=== PATIENT | male | born 1970 | race Caucasian/White ===

== ENCOUNTER 2021-11-21 18:30 | Observation (INO) | payer OTHER, SELFPAY ==
[2021-11-21] VITALS (8 sets, daily range): BP systolic 143–162; BP diastolic 66–95; PULSE 88–104; RESP 10–20; TEMP 36.4; O2SAT 92–95
--- NOTE | ~2021-11-21 | CT_ITS ---
EXAMINATION: CT chest abdomen pelvis wo con DATE: 11/22/2021 16:03 INDICATION: Epigastric abdominal pain. Shortness of breath. Nausea and vomiting. TECHNIQUE: Computed tomography (CT) of the chest, abdomen, and pelvis was performed without intraveno us contrast. Automated exposure control and iterative reconstruction technique were employed. The dos e-length product was 1645.72 mGy-cm. COMPARISON: Chest CT 01/27/2017, CT abdomen and pelvis 04/07/2015 FINDINGS: CHEST CT: There is mild emphysema. There is mild dependent atelectasis bilaterally. There are centrilobular nod ules and groundglass opacities involving right middle lobe, right upper lobe, and right lower lobe, c onsistent with pneumonia. Calcified right lung nodules and calcified right hilar lymph nodes are cons istent with old granulomatous disease. There are trace pleural effusions. The heart size is normal. T here is a stent in left anterior descending coronary artery. No pericardial effusion. There is mild t horacic spondylosis. ABDOMEN/PELVIS CT: There is diffuse hepatic steatosis. There is liver surface nodularity, consistent with cirrhosis. Hans cifications in the spleen are consistent with old granulomatous disease. The gallbladder, pancreas, a drenal glands, are normal. There is cortical thinning of the kidneys. There is an umbilical hernia co ntaining fat. There are no dilated loops of bowel. The appendix is normal. There are no pathologicall y enlarged lymph nodes. There is no free intraperitoneal fluid. There is moderate lower lumbar spondy losis. IMPRESSION: 1. Right-sided pneumonia. 2. Cirrhosis of the liver. 3. Umbilical hernia containing fat. Reviewed, dictated and finalized at location A. DBOAT OPERATOR
--- NOTE | ~2021-11-21 | XR_ITS ---
XR chest 1V portable DATE: 11/21/2021 19:42 INDICATION: Suicide attempt TECHNIQUE: Portable upright AP chest on 11/21/2021 1938 hours COMPARISON: 09/14/2019 AP and lateral chest FINDINGS: Scattered mild infiltrates and/atelectasis in the right mid to upper lung and lower lung zo nehemiah, primarily on the right. Consider mild pneumonia, aspiration pneumonitis. Normal heart size. No pleural effusion or pulmonary vascular congestion or pneumothorax. Included skeletal structures are unremarkable. IMPRESSION: Mild patchy infiltrate or atelectasis involving primarily the right mid to upper and righ t lower lung zones. Consider pneumonia, aspiration pneumonitis Reviewed, dictated and finalized at location A. CAL TRANSCRIPTION IMPRESSION: Mild patchy infiltrate or atelectasis involving primarily the right mid to upper and right lower lung zones. Consider pneumonia, aspiration pneumo nitis
--- NOTE | 2021-11-21 18:52 | ECG_ITS ---
Measurements Intervals [place] Rate: 91 P: 19 OH: 132 QRS: -20 QRSD: 85 T: 11 QT: 355 QTc: 437 Interpretive Statements SINUS RHYTHM NONSPECIFIC T-WAVE ABNORMALITY- INFERIOR LEADS BORDERLINE ECG Electronically Signed On 11-23-2021 7:50:08 MANA[address] LEASING by To[address]ito [address] D.O.
[2021-11-21 19:12] LABS: Hematocrit 45.8 % (42.0-52.0); Hemoglobin 15.8 g/dL (14.0-18.0); Mean Corpuscular HGB Conc 34.5 g/dl (32-36); Mean Corpuscular Hemoglobin 33.6 pg (26-34); Mean Corpuscular Volume 97.4 fl (80-100); Platelet Count Result 178 k/mm3 (150-375); Red Cell Distribution Width 12.1 % (11.5-14.5); White Blood Count 22.9 K/mm3 (4.5-10.0)
[2021-11-21 19:23] LABS: Add Urine Microscopic? YES; Appearance Urine Clear (Clear); Bilirubin Urine Negative (Negative); Blood Urine Negative (Negative); Color Urine Yellow (Yellow); Glucose Urine UA Negative (Negative); Ketones Urine Negative (Negative); Leukocyte Esterase Ur Negative LEU/UL (Negative); Mucus Urine Rare /lpf; Nitrate Urine Negative (Negative); Protein Urine 1+ mg/dL (Negative); RBC Urine 0-2 /hpf (0-2); Specific Grav Ur 1.027 (1.001-1.035); Squamous Epithelial Cell Urine Rare /hpf (Few); Urobilinogen Urine Negative mg/dL (<2.0); WBC Urine 0-3 /hpf
[2021-11-21 19:27] LABS: Acetaminophen < 10 ug/mL (10-30); Ethanol < 10 mg/dL (<10); Salicylate < 1.0 mg/dL (2-20)
[2021-11-21 19:28] LABS: Alanine Aminotransferase 72 U/L (4-50); Albumin Level 4.6 g/dL (3.5-5.1); Alkaline Phosphatase 97 U/L (38-126); Anion Gap 9 mmol/L (8-16); Aspartate Amino Transferase 50 U/L (17-59); Bilirubin,Total 0.9 mg/dL (0.2-1.3); Blood Urea Nitrogen 18 mg/dL (9-20); Calcium 9.4 mg/dL (8.4-10.2); Carbon Dioxide 27 mmol/L (22-30); Chloride 104 mmol/L (98-107); Estimated CRCL calculation 79 ml/min; Estimated Glomerular Filt Rate > 60; Glucose 147 mg/dL (65-110); Potassium 4.5 mmol/L (3.4-5.0); Sodium 140 mmol/L (137-145)
--- NOTE | 2021-11-21 19:32 | ED.GENADULT ---
HPI - General Adult General Chief complaint: Overdose Stated complaint: overdose Time Seen by Provider: 11/21/21 19:05 History of Present Illness HPI narrative: Is a 51-year-old gentleman who presents the emergency department with chief complaint of overdose. Patient reports that last night he was feeling depressed and wanted to harm himself. The patient states that he took trazodone and an unknown number of other pills in an attempt to harm himself he states he took this around 6 PM yesterday he also drink alcohol with this patient states that he feels tired today patient reports he has tried to harm himself before in the past patient denies any other forms of trauma reports that he is still actively suicidal. Related Data Home Medications Medication Instructions Recorded Confirmed Ingrezza 40 mg PO DAILY 09/18/19 09/19/19 atorvastatin 40 mg PO DAILY 09/18/19 09/19/19 baclofen 10 mg PO TID PRN 09/18/19 09/19/19 fluoxetine 40 mg PO DAILY 09/18/19 09/19/19 hydrochlorothiazide 25 mg PO DAILY 09/18/19 09/19/19 hydrocodone-acetaminophen 1 tablet PO BID PRN 09/18/19 09/19/19 losartan 25 mg PO DAILY 09/18/19 09/19/19 naproxen 500 mg PO BID 09/18/19 09/19/19 omeprazole 20 mg PO BIDAC 09/18/19 09/19/19 sumatriptan succinate 100 mg PO DAILY PRN 09/18/19 09/19/19 topiramate 100 mg PO HS 09/18/19 09/19/19 trazodone 50 mg PO HS 09/18/19 09/19/19 Allergies Allergy/AdvReac Type Severity Reaction Status Date / Time Penicillins Allergy Intermediate Rash Verified 09/18/19 14:52 Sulfa (Sulfonamide Allergy Mild Rash Verified 09/18/19 14:52 Antibiotics) Review of Systems Review of Systems: A 10 system review of systems was completed on the patient and is negative except for what is stated in the HPI. Nursing and ancillary documentation was reviewed. [facility] Past Medical History Medical History Anxiety COPD (chronic obstructive pulmonary disease) Coronary artery disease Depression Extrapyramidal syndrome GERD (gastroesophageal reflux disease) Hypertension Sleep apnea Surgical History Surgical History H/O cardiac catheterization History of tonsillectomy Family History Family History Mother Family history of diabetes mellitus in first degree relative Cerebrovascular accident Father Family history of coronary artery disease Cerebrovascular accident Other Diabetes mellitus Family history of heart disease in male family member before age 55 Family history of mental disorder Hypertension Social History Social History Smoking status: Current every day smoker Second hand tobacco smoke exposure: No Alcohol intake: current Drinks per week: 1 Substance use: current Substance use type: marijuana Gender identity (if verbalized by the patient): Male Spiritual care concerns: No Agree to blood products: Yes Exam Narrative: GENERAL: Well-appearing, well-nourished, and in no acute distress. HEAD: Normocephalic, atraumatic. EYES: PERRLA and EOMI. ENT: Nares clear, no rhinorrhea or epistaxis. Mucous membranes moist. NECK: Supple. CHEST: Clear to auscultation. No respiratory distress. HEART: Regular rate and rhythm. No murmur heard. Normal peripheral pulses. ABDOMEN: Soft, nontender, nondistended, normal active bowel sounds. EXTREMITIES: Normal range of motion. No edema. SKIN: Warm, dry, no rash. NEURO: No focal deficits. Alert and oriented x3. Drowsy PSYCH: Normal mood and affect. Expresses suicidal ideation Course Course Emergency Course: Patient control was contacted and the poison control sales training representative recommended the patient be observed for 6 hours after arrival to the emergency department. Patient is a white blood cell count of 22.9. He is curre
[2021-11-21 19:35] LABS: Band Neutrophils Percent 4 % (0-6); Eosinophils Absolute Manual 0.22 K/mm3 (0.02-0.5); Eosinophils Percent Manual 1 % (0-4); Lymphocytes Absolute Manual 0.68 K/mm3 (1.1-4.5); Monocytes Absolute Manual 0.68 K/mm3 (0.1-0.90); Monocytes Percent Manual 3 % (3-9); Neutrophils Absolute Manual 21.29 K/mm3 (1.3-6.7); Neutrophils Percent Manual 89 % (46-73); Platelet Estimate Adequate (Adequate); Total Cells Counted 100
[2021-11-21 19:46] LABS: Amphetamine Screen Urine Negative (Negative); Barbiturate Screen Urine Negative (Negative); Benzodiazepines Screen Urine Positive (Negative); Cannabinoid Screen Urine Positive (Negative); Cocaine Screen Urine Negative (Negative); Methadone Screen Urine Negative (Negative); Opiate Screen Urine Positive (Negative); Phencyclidine Screen Urine Negative (Negative)
[2021-11-21 19:51] LABS: SARS-CoV-2 RNA PCR Negative
[2021-11-21] MEDS: metroNIDAZOLE 500 MG/ISO 100ML 500 MG/100 ML BAG 100 MG IVPB (22:26)
[2021-11-21] MEDS: SODIUM CHLORIDE 0.9% IV 1,000 ML 125 ML IV CONT (23:11)
[2021-11-22] VITALS (127 sets, daily range): BP systolic 135–190; BP diastolic 75–106; PULSE 83–109; RESP 11–20; O2SAT 92–98
[2021-11-22 00:24] LABS: Alanine Aminotransferase 63 U/L (4-50); Alkaline Phosphatase 87 U/L (38-126); Anion Gap 10 mmol/L (8-16); Aspartate Amino Transferase 43 U/L (17-59); Bilirubin,Total 0.6 mg/dL (0.2-1.3); Blood Urea Nitrogen 20 mg/dL (9-20); Calcium 8.9 mg/dL (8.4-10.2); Carbon Dioxide 27 mmol/L (22-30); Chloride 102 mmol/L (98-107); Creatine Kinase 230 U/L (55-170); Estimated CRCL calculation 79 ml/min; Estimated Glomerular Filt Rate > 60; Glucose 135 mg/dL (65-110); Potassium 4.3 mmol/L (3.4-5.0); Sodium 139 mmol/L (137-145)
[2021-11-22 00:25] LABS: Acetaminophen < 10 ug/mL (10-30)
--- NOTE | 2021-11-22 01:53 | PC.NURSE ---
Pt O2 sat fluctuating between 91%-93%. Pt placed on 1L NC.
[2021-11-22] MEDS: ALBUTEROL SULFATE NEB 2.5 MG/0.5 ML INH 5 MG INHALATION ×4 (03:17→20:44)
[2021-11-22] MEDS: IPRATROPIUM BR 0.02% INH SOLN 0.5 MG/2.5 ML VIAL INHALATION ×4 (03:17→20:44)
--- NOTE | 2021-11-22 04:14 | PC.NURSE ---
Mayte from poison control called for update on recent labs, vitals, and pt status. This RN gave verbal report/results information.
[2021-11-22] MEDS: metroNIDAZOLE 500 MG/ISO 100ML 500 MG/100 ML BAG 100 MG IVPB ×2 (05:31→17:44)
--- NOTE | 2021-11-22 07:24 | PC.NURSE ---
coating and embossing unit operator has order pt room tray at [id number]
[2021-11-22] MEDS: SODIUM CHLORIDE 0.9% IV 1,000 ML 125 ML IV CONT (08:29)
--- NOTE | 2021-11-22 08:30 | PC.NURSE ---
Pt awake. Assisted x1 to bedside commode. Incontinent of diarrhea in bed. Linens changed.
--- NOTE | 2021-11-22 09:00 | PC.NURSE ---
Pt asked for drink of water and drank without difficulty.
--- NOTE | 2021-11-22 10:16 | PC.NURSE ---
case # [id number] Celia Sen from poison control called - signing off on the case, states needs more medical care.
--- NOTE | 2021-11-22 10:41 | PM.IMHP ---
H&P: HPI History of Present Illness Date/Time: 11/22/21 10:41 Chief Complaint: suicidal ideation w attempt Narrative: 51 yo M w major depressive disorder, anxiety, history of tobacco use with COPD, weekend in drinking, hypertension, fatty liver, history of colectomy, history of coronary disease with stenting x2 in 2015, obesity, GERD, polysubstance abuse presents to the emergency room reporting that the previous night he had consumed baclofen, trazodone, Klonopin, and treat per just Xanax with intent to ?end it?. Upon arrival to the ER [place] poison control was notified and was observed following their guidance. Episodes of vomiting were reported in ER while pt appeared intoxicated. Patient states that he has been feeling more depressed lately. He is prescribed hydrocodone approximately 50 tablets per month for his chronic low back pain. Additionally, he consumes marijuana and Xanax purchased from the street. Patient previously under the care of psychiatrist Dr. Hitchcock however patient states this physician has moved. Previous suicide attempt in 2001 with a voluntary inpt stay at [facility] (formerly [facility]). Patient lives in [place] with his brother and his brother spouse. 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 ROS pt reporting abd pain, most significant in LLQ, history of colectomy x recurrent diverticulitis and chronic diarrhea Review of Systems Review of Systems: All systems reviewed & are unremarkable except as noted in HPI and below PMFSH Past Medical History Medical History (Updated 11/22/21 @ 16:00 by Lorena Rvai MD) Anxiety COPD (chronic obstructive pulmonary disease) Coronary artery disease Extrapyramidal syndrome GERD (gastroesophageal reflux disease) Hypertension Sleep apnea Surgical History Surgical History (Updated 11/22/21 @ 15:55 by Lorena Ravi MD) H/O adenoidectomy H/O cardiac catheterization H/O colectomy History of tonsillectomy Family History Family History Mother Family history of diabetes mellitus in first degree relative Cerebrovascular accident Father Family history of coronary artery disease Cerebrovascular accident Other Diabetes mellitus Family history of heart disease in male family member before age 55 Family history of mental disorder Hypertension Social History Social History Smoking status: Current every day smoker Second hand tobacco smoke exposure: No Alcohol intake: current Drinks per week: 1 Substance use: current Substance use type: marijuana Gender identity (if verbalized by the patient): Male Spiritual care concerns: No Agree to blood products: Yes Meds Home Medications and Allergies Home Medications Medication Instructions Recorded Confirmed Type Ingrezza 40 mg PO DAILY 09/18/19 09/19/19 History baclofen 10 mg PO TID PRN 09/18/19 09/19/19 History hydrochlorothiazide 25 mg PO DAILY 09/18/19 09/19/19 History hydrocodone-acetaminophen 1 tablet PO BID PRN 09/18/19 09/19/19 History naproxen 500 mg PO BID 09/18/19 09/19/19 History omeprazole 20 mg PO BIDAC 09/18/19 09/19/19 History topiramate 100 mg PO HS 09/18/19 09/19/19 History clonazepam 0.5 mg PO Q8H 11/22/21 11/22/21 History diclofenac sodium TOPICAL PRN 11/22/21 History dicyclomine 10 mg PO TID 11/22/21 11/22/21 History omeprazole 11/22/21 11/22/21 History Allergies Allergy/AdvReac Type Severity Reaction Status Date / Time Penicillins Allergy Intermediate Rash Verified 11/22/21 15:11 Sulfa (Sulfonamide Allergy Mild Rash Verified 11/22/21 15:11 Antibiotics) Vital Signs Vital Signs - 24 hr 11/21/21 18:41 11/21/21 18:58 11/21/21 19:00 Temperature 97.6 F Pulse Rate 94 91 104 H Respiratory Rate 12 10 L 14 Blood Pressure 162/66 H Pulse Oximetry 95 94 95 11/21/21 19:01 11/21/21 19:15 11/21/21 19:16 Temperature Pulse Rate 98 89 94 Respir
[2021-11-22] MEDS: ALBUTEROL SULFATE NEB 2.5 MG/3 ML INH 1.25 MG INHALATION (11:00)
--- NOTE | 2021-11-22 12:15 | PC.NURSE ---
Spoke with Dr Ravi - she is calling poison control to get an update from them
--- NOTE | 2021-11-22 12:47 | PC.NURSE ---
Pt states he quit smoking 3 years ago, no need for nicotine patch at this time.
--- NOTE | 2021-11-22 12:55 | PC.NURSE ---
Update to patient and daughter at bedside. Pt awake, oriented, making appropriate conversation. Daughter attempting to contact patient's pharmacy to get home list of meds. Pt denies suicidal ideation at this time.
--- NOTE | 2021-11-22 13:30 | PC.NURSE ---
Dr Ravi states pt is medically cleared and to call crisis for evaluation
--- NOTE | 2021-11-22 14:00 | PC.NURSE ---
O2 saturations appropriate on room air after returning from BR using wheelchair and ambulating independently to toilet. Taken off NC
--- NOTE | 2021-11-22 14:57 | PC.NURSE ---
Called pharmacy to reschedule timing of losartan and send dose.
--- NOTE | 2021-11-22 15:18 | PC.NURSE ---
Left message for Dr Ravi regarding patient headache.
[2021-11-22] MEDS: LOSARTAN POTASSIUM 100 MG TABLET PO (15:22)
--- NOTE | 2021-11-22 16:02 | PC.NURSE ---
Spoke with Dr Ravi. this RN to clarify home medications. MD aware of headache, is placing order for pain and hydralazine.
--- NOTE | 2021-11-22 16:03 | PC.NURSE ---
Pt returned from CT scan
[2021-11-22] MEDS: ACETAMINOPHEN 325 MG TABLET 650 MG PO (17:15)
--- NOTE | 2021-11-22 17:24 | PC.NURSE ---
Dr Ravi entered note stating pt will remain in hospital overnight. Pt is not medically cleared. Updated crisis about pt status.
--- NOTE | 2021-11-22 19:31 | PC.NURSE ---
Spoke with Sheila, patient's daughter. Daughter states family member has faxed medication list they obtained from PCP. No fax found. Family to refax or bring in list of medications.
--- NOTE | 2021-11-22 20:38 | PC.NURSE ---
Spoke with Dr Do around 2014, med list has been updated with list from Daughter who obtained med list from PCP and confirmed with patient. MD aware of BP, to placed orders for PO medications at this time and use PRN hydralazine if patient does not respond to PO medication. Decrease fluids to 75 cc per hour.
[2021-11-22] MEDS: DICYCLOMINE HCL 10 MG CAPSULE PO (21:04)
[2021-11-22] MEDS: hydroCHLOROthiazide 25 MG TABLET PO (21:04)
[2021-11-22] MEDS: NAPROXEN 500 MG TABLET PO (21:04)
[2021-11-22] MEDS: METOPROLOL TARTRATE 25 MG TABLET PO (21:05)
[2021-11-22] MEDS: SODIUM CHLORIDE 0.9% IV 1,000 ML 75 ML IV CONT (22:20)
--- NOTE | 2021-11-22 23:31 | PC.NURSE ---
gave update to daughter, Sheila.
--- NOTE | 2021-11-22 23:50 | PC.NURSE ---
Dr Do on floor, aware of elevated BP. RN to give PRN hydralazine
[2021-11-22] MEDS: hydrALAZINE HCL 20 MG/ML VIAL 10 MG IV PUSH (23:51)
[2021-11-23] VITALS (43 sets, daily range): BP systolic 161–195; BP diastolic 91–102; PULSE 78–95; RESP 12–21; TEMP 36.9; O2SAT 91–99
--- NOTE | 2021-11-23 00:25 | PC.NURSE ---
Dr. Do made aware that there was no risk indicated when this RN did CSSR. Patient verbalized, I didn't really want to harm myself. It was a stupid, drunken mistake. Dr. Do would like a sitter to stay with patient until evaluated by Crisis.
[2021-11-23] MEDS: metroNIDAZOLE 500 MG/ISO 100ML 500 MG/100 ML BAG 100 MG IVPB ×2 (03:33→11:51)
[2021-11-23] MEDS: ALBUTEROL SULFATE NEB 2.5 MG/0.5 ML INH 5 MG INHALATION ×4 (03:34→19:31)
[2021-11-23] MEDS: IPRATROPIUM BR 0.02% INH SOLN 0.5 MG/2.5 ML VIAL INHALATION ×4 (03:34→19:31)
[2021-11-23] MEDS: DICYCLOMINE HCL 10 MG CAPSULE PO ×3 (04:16→17:26)
[2021-11-23] MEDS: PANTOPRAZOLE 40 MG TABLET PO ×2 (07:53→17:26)
[2021-11-23 08:10] LABS: Basophils Absolute Auto 0.1 K/mm3 (0.0-0.1); Basophils Percent Auto 0.4 % (0.2-1.2); Eosinophils Absolute Auto 0.2 K/mm3 (0-0.3); Eosinophils Percent Auto 1.6 % (0-4.4); Hematocrit 39.6 % (42.0-52.0); Hemoglobin 13.5 g/dL (14.0-18.0); Immature Granulocyte Absolute 0.11 K/mm3 (0.00-0.031); Immature Granulocyte Percent A 0.8 % (0-0.5); Lymphocytes Absolute Auto 2.68 K/mm3 (0.9-3.2); Lymphocytes Percent Auto 20.1 % (18.3-44.2); Mean Corpuscular HGB Conc 34.1 g/dl (32-36); Mean Corpuscular Hemoglobin 33.3 pg (26-34); Mean Corpuscular Volume 97.5 fl (80-100); Mean Platelet Volume 8.7 fl (7.4-10.4); Monocytes Percent Auto 7.3 % (2.6-8.5); Neutrophils Absolute Auto 9.3 K/mm3 (1.3-6.7); Neutrophils Percent Auto 69.8 % (45.5-73.1); Platelet Count Result 132 k/mm3 (150-375); Red Blood Count 4.06 M/mm3 (4.6-6.20); Red Cell Distribution Width 12.3 % (11.5-14.5); White Blood Count 13.3 K/mm3 (4.5-10.0)
[2021-11-23 08:46] LABS: Alanine Aminotransferase 64 U/L (4-50); Albumin Level 3.7 g/dL (3.5-5.1); Alkaline Phosphatase 77 U/L (38-126); Anion Gap 3 mmol/L (8-16); Aspartate Amino Transferase 82 U/L (17-59); Bilirubin,Total 0.9 mg/dL (0.2-1.3); Blood Urea Nitrogen 14 mg/dL (9-20); CRP 3.4 mg/dL (<1.0); Calcium 8.7 mg/dL (8.4-10.2); Carbon Dioxide 30 mmol/L (22-30); Chloride 103 mmol/L (98-107); Estimated CRCL calculation 86 ml/min; Estimated Glomerular Filt Rate > 60; Glucose 102 mg/dL (65-110); Potassium 3.5 mmol/L (3.4-5.0); Sodium 136 mmol/L (137-145)
[2021-11-23] MEDS: LOSARTAN POTASSIUM 100 MG TABLET PO (08:59)
[2021-11-23] MEDS: NAPROXEN 500 MG TABLET PO ×2 (08:59→17:26)
[2021-11-23] MEDS: hydroCHLOROthiazide 25 MG TABLET PO (09:07)
--- NOTE | 2021-11-23 10:38 | PM.IMPN ---
Progress Note: A&P Assessment and Plan (1) Depression with suicidal ideation: Code(s): F32.A - Depression, unspecified; R45.851 - Suicidal ideations Status: Acute (2) Aspiration pneumonia: Qualifiers: Aspiration pneumonia type: unspecified Laterality: bilateral Lung location: unspecified part of lung Qualified Code(s): J69.0 - Pneumonitis due to inhalation of food and vomit Code(s): J69.0 - Pneumonitis due to inhalation of food and vomit Status: Acute (3) Intentional overdose: Qualifiers: Encounter type: initial encounter Qualified Code(s): T50.902A - Poisoning by unspecified drugs, medicaments and biological substances, intentional self-harm, initial encounter Code(s): T50.902A - Poisoning by unspecified drugs, medicaments and biological substances, intentional self-harm, initial encounter Status: Acute (4) Extrapyramidal syndrome: Code(s): G25.9 - Extrapyramidal and movement disorder, unspecified Status: Acute (5) Hypertension: Qualifiers: Hypertension type: unspecified Qualified Code(s): I10 - Essential (primary) hypertension Code(s): I10 - Essential (primary) hypertension Status: Acute (6) GERD (gastroesophageal reflux disease): Qualifiers: Esophagitis presence: esophagitis presence not specified Qualified Code(s): K21.9 - Gastro-esophageal reflux disease without esophagitis Code(s): K21.9 - Gastro-esophageal reflux disease without esophagitis Status: Acute (7) Major depressive disorder with current active episode: Code(s): F32.9 - Major depressive disorder, single episode, unspecified Status: Acute (8) COPD (chronic obstructive pulmonary disease): Qualifiers: COPD type: unspecified COPD Qualified Code(s): J44.9 - Chronic obstructive pulmonary disease, unspecified Code(s): J44.9 - Chronic obstructive pulmonary disease, unspecified Status: Acute (9) Obesity (BMI 35.0-39.9 without comorbidity): Code(s): E66.9 - Obesity, unspecified Status: Acute (10) Leukocytosis: Qualifiers: Leukocytosis type: unspecified Qualified Code(s): D72.829 - Elevated white blood cell count, unspecified Code(s): D72.829 - Elevated white blood cell count, unspecified Status: Acute (11) Abdominal pain: Code(s): R10.9 - Unspecified abdominal pain Status: Acute (12) Suicide attempt by drug ingestion: Code(s): T50.902A - Poisoning by unspecified drugs, medicaments and biological substances, intentional self-harm, initial encounter Status: Acute Additional Plan 51 yo M w h/o polysubstance abuse and major depression presents to [facility] after attempting to harm himself by ingesting multiple pills and drinking alcohol. Utox + for BZD, Opiates, and Marijuana (EtOH negative) admit to IMU 1:1 sitter suicide precautions Call placed to poison Control review of plan of care with them personally I have spoken with Jose Maria at [place] [facility] Control case [id number] patient has been cleared from their standpoint for his trazodone and benzodiazepine and baclofen overdose IV abx coverage for aspiration PNA covering commonly community-acquired bacteria MRSA and anaerobes, likely occurred when pt vomiting cont duonebs PRN x COPD abd pain w leukocytosis -> CT abd ordered tylenol zofran hydralazine PRN cardiac diet Patient is currently on room air but with significant leukocytosis will monitor overnight prior to discharge c/s Crisis after workup and observation period complete 11/23/21 hydralazine increased home meds pending review by RN BZD dependent this has been added back to DEC to prevent withdrawal seizure should be able to be medically cleared for dc on Levaquin when BP improved abx de-escalated nifedipine added to home BP regimen will need crisis eval prior to final disposition Subjective Date/time seen: 10/27
[2021-11-23] MEDS: clonazePAM (*CRX) 0.5 MG TABLET PO ×2 (11:52→19:13)
[2021-11-23] MEDS: ACETAMINOPHEN 325 MG TABLET 650 MG PO (12:43)
[2021-11-23] MEDS: SODIUM CHLORIDE 0.9% IV 1,000 ML 75 ML IV CONT (12:44)
[2021-11-23] MEDS: NIFEdipine 30 MG TAB.ER.24 PO (18:08)
--- NOTE | 2021-11-23 20:14 | PC.NURSE ---
Report received from CHRISTIAN Ortega. Assumed care of patient at this time.
[2021-11-23] MEDS: TAMSULOSIN HCL 0.4 MG CAPSULE PO (21:16)
[2021-11-24] VITALS (33 sets, daily range): BP systolic 129–158; BP diastolic 70–95; PULSE 79–95; RESP 12–25; TEMP 36.7; O2SAT 90–96
[2021-11-24] MEDS: ACETAMINOPHEN 325 MG TABLET 650 MG PO (01:54)
--- NOTE | 2021-11-24 01:57 | PC.NURSE ---
Patient c/o headache, requested tylenol.
[2021-11-24] MEDS: clonazePAM (*CRX) 0.5 MG TABLET PO (03:14)
[2021-11-24] MEDS: PANTOPRAZOLE 40 MG TABLET PO (06:18)
--- NOTE | 2021-11-24 08:18 | PC.NURSE ---
Hospitalist called and medically cleared patient at this time. Crisis notified of patient for evaluation
[2021-11-24] MEDS: FLUoxetine HCL 20 MG CAPSULE 40 MG PO (08:54)
[2021-11-24] MEDS: hydroCHLOROthiazide 25 MG TABLET PO (08:54)
[2021-11-24] MEDS: NAPROXEN 500 MG TABLET PO (08:54)
[2021-11-24] MEDS: DICYCLOMINE HCL 10 MG CAPSULE PO (08:54)
[2021-11-24] MEDS: NIFEdipine 30 MG TAB.ER.24 PO (12:30)
--- NOTE | 2021-11-24 13:03 | PM.DS ---
DS: Admitting Diagnosis Discharge Date 11/24/21 Admitting Diagnosis (1) Depression with suicidal ideation: Code(s): F32.A - Depression, unspecified; R45.851 - Suicidal ideations Status: Acute (2) Aspiration pneumonia: Qualifiers: Aspiration pneumonia type: unspecified Laterality: bilateral Lung location: unspecified part of lung Qualified Code(s): J69.0 - Pneumonitis due to inhalation of food and vomit Code(s): J69.0 - Pneumonitis due to inhalation of food and vomit Status: Acute (3) Intentional overdose: Qualifiers: Encounter type: initial encounter Qualified Code(s): T50.902A - Poisoning by unspecified drugs, medicaments and biological substances, intentional self-harm, initial encounter Code(s): T50.902A - Poisoning by unspecified drugs, medicaments and biological substances, intentional self-harm, initial encounter Status: Acute (4) Extrapyramidal syndrome: Code(s): G25.9 - Extrapyramidal and movement disorder, unspecified Status: Acute (5) Hypertension: Qualifiers: Hypertension type: unspecified Qualified Code(s): I10 - Essential (primary) hypertension Code(s): I10 - Essential (primary) hypertension Status: Acute (6) GERD (gastroesophageal reflux disease): Qualifiers: Esophagitis presence: esophagitis presence not specified Qualified Code(s): K21.9 - Gastro-esophageal reflux disease without esophagitis Code(s): K21.9 - Gastro-esophageal reflux disease without esophagitis Status: Acute (7) Major depressive disorder with current active episode: Code(s): F32.9 - Major depressive disorder, single episode, unspecified Status: Acute (8) COPD (chronic obstructive pulmonary disease): Qualifiers: COPD type: unspecified COPD Qualified Code(s): J44.9 - Chronic obstructive pulmonary disease, unspecified Code(s): J44.9 - Chronic obstructive pulmonary disease, unspecified Status: Acute (9) Obesity (BMI 35.0-39.9 without comorbidity): Code(s): E66.9 - Obesity, unspecified Status: Acute (10) Leukocytosis: Qualifiers: Leukocytosis type: unspecified Qualified Code(s): D72.829 - Elevated white blood cell count, unspecified Code(s): D72.829 - Elevated white blood cell count, unspecified Status: Acute (11) Abdominal pain: Code(s): R10.9 - Unspecified abdominal pain Status: Acute (12) Suicide attempt by drug ingestion: Code(s): T50.902A - Poisoning by unspecified drugs, medicaments and biological substances, intentional self-harm, initial encounter Status: Acute DS: Discharge Diagnosis Discharge Diagnosis (1) Depression with suicidal ideation: Code(s): F32.A - Depression, unspecified; R45.851 - Suicidal ideations Status: Acute (2) Aspiration pneumonia: Qualifiers: Aspiration pneumonia type: unspecified Laterality: bilateral Lung location: unspecified part of lung Qualified Code(s): J69.0 - Pneumonitis due to inhalation of food and vomit Code(s): J69.0 - Pneumonitis due to inhalation of food and vomit Status: Acute (3) Intentional overdose: Qualifiers: Encounter type: initial encounter Qualified Code(s): T50.902A - Poisoning by unspecified drugs, medicaments and biological substances, intentional self-harm, initial encounter Code(s): T50.902A - Poisoning by unspecified drugs, medicaments and biological substances, intentional self-harm, initial encounter Status: Acute (4) Extrapyramidal syndrome: Code(s): G25.9 - Extrapyramidal and movement disorder, unspecified Status: Acute (5) Hypertension: Qualifiers: Hypertension type: unspecified Qualified Code(s): I10 - Essential (primary) hypertension Code(s): I10 - Essential (primary) hypertension Status: Acute (6) GERD (gastroesophageal reflux disease): Qualif
== END 2021-11-24 13:45 | disposition home or self-care (01) ==
LOC: ANHED 21:13 → ANHICU 11-22 09:09
PROVIDERS: Admitting Provider Internal Medicine; Emergency Provider Emergency Medicine; PCP Physician Assistant; Visit Provider Hospitalist
DX: T50.902A Poisoning by unspecified drugs, medicaments and biological substances, intentional self-harm, initial encounter (principal); F32.A Depression, unspecified; J69.0 Pneumonitis due to inhalation of food and vomit; G25.9 Extrapyramidal and movement disorder, unspecified; I10 Essential (primary) hypertension; K21.9 Gastro-esophageal reflux disease without esophagitis; J44.9 Chronic obstructive pulmonary disease, unspecified; E66.9 Obesity, unspecified; Z68.36 Body mass index [BMI] 36.0-36.9, adult; D72.829 Elevated white blood cell count, unspecified; R10.9 Unspecified abdominal pain; R45.851 Suicidal ideations; I16.0 Hypertensive urgency; F32.9 Major depressive disorder, single episode, unspecified; Z20.822 Contact with and (suspected) exposure to COVID-19
CPT/HCPCS: 36415; 71045; 71250; 74176; 80053; 80202; 80307; 81001; 82550; 83735; 84443; 85025; 86140; 87040; 93005; 94640; 96361; 96365; 96366; 96367; 96375; 99285; A9270; C9803; G0378; J0360; J0696; J0743; J1956; J3370; J7030; U0003; U0005

== ENCOUNTER 2022-05-19 10:43 | Inpatient (IN) | payer OTHER, SELFPAY ==
[2022-05-19] VITALS (10 sets, daily range): BP systolic 127–176; BP diastolic 82–120; PULSE 88–128; RESP 18–24; TEMP 36.6–36.9; O2SAT 95–99
--- NOTE | ~2022-05-19 | XR_ITS ---
EXAMINATION: XR chest 1V portable INDICATION: Chest pain TECHNIQUE: Portable AP chest at 1126 hours COMPARISON: 11/21/2021 FINDINGS: The lungs are free of acute opacities. No pleural effusion or pneumothorax. The cardiomedia stinal silhouette is normal. IMPRESSION: 1. No acute cardiopulmonary abnormality. Reviewed, dictated and finalized at location B.
--- NOTE | ~2022-05-19 | US_ITS ---
EXAMINATION: US venous doppler [facility] DATE: 05/19/2022 15:28 INDICATION: Bilateral lower limb pain and swelling TECHNIQUE: Juárez scale images without and with compression and Doppler images of the bilateral lower e xtremity veins were obtained. COMPARISON: 02/04/2016 FINDINGS: The right common femoral vein, profunda femoral vein, femoral vein, popliteal vein, peroneal trunk, p osterior tibial veins, and greater saphenous vein are patent. The left common femoral vein, profunda femoral vein, femoral vein, popliteal vein, peroneal trunk, po sterior tibial veins, and greater saphenous vein are patent. IMPRESSION: 1. Patent bilateral lower extremity veins. No evidence of deep venous thrombosis. Reviewed, dictated and finalized at location B. IMPRESSION: 1. Patent bilateral lower extremity veins. No evidence of deep venous thrombosi s.
--- NOTE | ~2022-05-19 | US_ITS ---
EXAMINATION: US retroperitoneal duplex ltd DATE: 05/20/2022 09:47 CDT INDICATION: Hypertension TECHNIQUE: Multiple grayscale, color Doppler, and pulsed Doppler images of the kidneys and renal sourav malissa were obtained. COMPARISON: None. FINDINGS: The aorta peak systolic velocity is 93 cm/s. The right renal artery peak systolic velocity is 254 cm/ s in the proximal segment, 287 cm/s in the mid segment, 223 cm/s in the distal segment. The left carina l artery peak systolic velocity is 339 cm/s in the proximal segment, 341 cm/s in the mid segment, 307 cm/s in the distal segment. The renal artery/aorta systolic ratio on the right is 3.1 and on the left is 3.7. Notes: renal artery stenosis is >=180-200 cm/s or >3.5:1 ratio of renal artery velocity to aorta. Thi s correlates with >50-60% stenosis. IMPRESSION: 1. Bilateral renal artery stenosis. Reviewed, dictated and finalized at location A.
--- NOTE | ~2022-05-19 | US_ITS ---
US retroperitoneal comp 05/20/2022 09:33 Procedure: Realtime transabdominal ultrasound of the kidneys and bladder. Indication: Acute renal failure Comparison: No prior studies for comparison. Findings: Renal echotexture is normal bilaterally without hydronephrosis, contour deforming mass or r enal calculus. The right kidney measures 9.8 cm and left kidney measures 10.5 cm. Bladder within nor mal limits. Impression: 1: Unremarkable renal ultrasound. No stones, masses or hydronephrosis. Reviewed, dictated and finalized at location A. Impression: 1: Unremarkable renal ultrasound. No stones, masses or hydronephrosis.
--- NOTE | ~2022-05-19 | CT_ITS ---
EXAMINATION: CT chest abdomen pelvis wo con DATE: 05/19/2022 12:16 INDICATION: Chest heaviness and left-sided abdominal pain. Nausea and vomiting. TECHNIQUE: Computed tomography (CT) of the chest, abdomen, and pelvis was performed without intraveno us contrast. Automated exposure control and iterative reconstruction technique were employed. The dos e-length product was 1478.66 mGy-cm. COMPARISON: None FINDINGS: CHEST CT: Cluster of tiny calcified right lower lobe nodules and calcified right hilar lymph nodes consistent w ith old granulomatous disease. No pneumonia, pulmonary edema or other pulmonary infiltrates. No pleur al effusion or pneumothorax. Heart size is normal. No pericardial effusion. There are some fatty infi ltration of the wall of the ventricular septum consistent with sequela chronic infarct. Coronary sourav ry stenting along the distal right coronary. Prominent atherosclerotic calcifications versus addition al stenting at the left anterior descending coronary artery. Thoracic aorta is normal in caliber. No pathologically enlarged thoracic lymphadenopathy. Bones are unremarkable. ABDOMEN/PELVIS CT: Diffuse hepatic steatosis. Gallbladder, pancreas, bilateral adrenal glands and right kidney are teressa l. Small region of cortical atrophy at the mid left kidney. 1 mm nonobstructing stone at an upper junior e calyx of the left kidney. A few small splenic calcific lesions consistent with old granulomatous di sease. No stones at the right kidney or bilateral ureters. No hydronephrosis. Bladder is normal. Mild scattered diverticulosis with descending colon predominance. No surrounding inflammatory stranding t o suggest diverticulitis. 2 cm long thin linear metallic foreign body at the tip of the cecum. Small bowel and appendix are normal. No bowel obstruction. No free intraperitoneal gas or fluid. No patholo gically enlarged abdominal or pelvic lymphadenopathy. Small fat-containing umbilical hernia. Mild lum bar levocurvature with mild spondylosis. IMPRESSION: 1. No acute cardiopulmonary disease. 2. Indeterminate 2 cm long thin linear metallic foreign body within the cecum. Correlate for history of an ingested foreign body. 3. Mild diverticulosis. 4. Diffuse hepatic steatosis. Reviewed, dictated and finalized at location A.
--- NOTE | ~2022-05-19 | XR_ITS ---
EXAMINATION: XR chest 2V 05/21/2022 13:23 INDICATION: Orthopnea. PROCEDURE: 2 view chest COMPARISON: Comparison to multiple prior studies sequentially, with oldest reviewed study dated 04/11. FINDINGS: The lungs are clear. The cardiomediastinal silhouette is within normal limits. There are no pleural effusions. There is no pneumothorax suspected. IMPRESSION: 1: NO ACUTE CARDIOPULMONARY DISEASE. Reviewed, dictated and finalized at location A.
--- NOTE | ~2022-05-19 | CT_ITS ---
EXAMINATION: CTA abdomen DATE: 05/22/2022 08:57 INDICATION: Renal artery stenosis TECHNIQUE: Computed tomographic angiography (CTA) of the abdomen with 100 mL Omnipaque-300 intravenou s contrast. Maximum intensity projection 3D-reconstructions of the aorta and other arteries were cons tructed by the technologist on a separate workstation. The dose-length product (DLP) was 894.85 mGy-c m. Automated exposure control and iterative reconstruction technique were employed. COMPARISON: 05/19/2022 FINDINGS: There is a 2 mm nodule of the right lower lobe. The heart size is normal. Stones are presen t in the nondistended gallbladder. Punctate calcifications in an otherwise normal spleen likely repre sent healed granulomatous disease. The liver, pancreas, and adrenal glands are normal. There are area s of cortical scarring in the left kidney. The right kidney is unremarkable. No pathologically enlarg ed abdominal or pelvic lymph nodes are identified. There is no free intraperitoneal gas or evidence o f bowel obstruction. There is an umbilical hernia containing fat. The celiac axis and superior mesenteric artery are normal at their origins. Inferior mesenteric arter y is diminutive at its origin. There are single renal arteries. No renal artery stenosis is identifie d. There is no aneurysm or dissection of the abdominal aorta. Atherosclerosis is noted in the distal abdominal aorta and visualized iliac arteries. IMPRESSION: 1. No CT evidence of renal artery stenosis. Reviewed, dictated and finalized at location B.
--- NOTE | 2022-05-19 10:48 | ECG_ITS ---
Measurements Intervals [place] Rate: 134 P: 45 MI: 126 QRS: -54 QRSD: 94 T: 30 QT: 302 QTc: 452 Interpretive Statements SINUS TACHYCARDIA LEFT AXIS DEVIATION POOR R WAVE PROGRESSION, ANTERIOR LEADS BASELINE ARTIFACT- I, II, III, AVR, AVL, AVF, V1 ABNORMAL ECG Electronically Signed On 05-19-2022 12:20:[address] D.O.
[2022-05-19 11:23] LABS: Basophils Absolute Auto 0.1 K/mm3 (0.0-0.1); Basophils Percent Auto 0.3 % (0.2-1.2); Eosinophils Absolute Auto 0.2 K/mm3 (0-0.3); Eosinophils Percent Auto 1.1 % (0-4.4); Hematocrit 48.9 % (42.0-52.0); Hemoglobin 16.5 g/dL (14.0-18.0); Immature Granulocyte Absolute 0.06 K/mm3 (0.00-0.031); Immature Granulocyte Percent A 0.4 % (0-0.5); Lymphocytes Absolute Auto 3.69 K/mm3 (0.9-3.2); Lymphocytes Percent Auto 25.5 % (18.3-44.2); Mean Corpuscular HGB Conc 33.7 g/dl (32-36); Mean Corpuscular Hemoglobin 32.5 pg (26-34); Mean Corpuscular Volume 96.3 fl (80-100); Mean Platelet Volume 8.7 fl (7.4-10.4); Monocytes Percent Auto 7.1 % (2.6-8.5); Neutrophils Absolute Auto 9.5 K/mm3 (1.3-6.7); Neutrophils Percent Auto 65.6 % (45.5-73.1); Platelet Count Result 272 k/mm3 (150-375); Red Blood Count 5.08 M/mm3 (4.6-6.20); Red Cell Distribution Width 12.8 % (11.5-14.5); White Blood Count 14.5 K/mm3 (4.5-10.0)
--- NOTE | 2022-05-19 11:24 | ED.CHESTPAIN ---
HPI - Chest Pain General Chief Complaint: Chest Pain <FELICIA Casillas Last Filed: 05/19/22 20:11> Stated Complaint: shortness of breath <FELICIA Casillas Last Filed: 05/19/22 20:11> Time Seen by Provider: 05/19/22 11:05 <FELICIA Casillas Last Filed: 05/19/22 20:11> Source: patient <FELICIA Casillas Last Filed: 05/19/22 20:11> Mode of arrival: ambulatory <FELICIA Casillas Last Filed: 05/19/22 20:11> Limitations: no limitations <FELICIA Casillas Last Filed: 05/19/22 20:11> History of Present Illness HPI narrative: Patient is a 51-year-old male who presents the ED with multiple complaints. Patient reports having nausea and vomiting X 2 days, left-sided abdominal pain X 1 week. He notes history of diverticulitis and states this pain feels similar. He also reports having midsternal chest pain and heaviness, radiating through to his back. He has difficulty taking a deep breath due to the pain. Denies dyspnea at rest. He does have a history of coronary artery disease and had cardiac stents placed 2 years ago. 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 Was taken off Brilinta after 1 year. Patient states he tried to go to [place] emergency room over the weekend for these symptoms, but states he left before he was seen. He also c/o headache, muscle pain in his extremities, and tremor. Patient states he has not taken his normal home medications in the last 2 days. <FELICIA Casillas Last Filed: 05/19/22 20:11> Related Data Home Medications: Home Medications Medication Instructions Recorded Confirmed baclofen 10 mg tablet 10 mg PO TID PRN Muscle Pain 09/18/19 05/19/22 hydrocodone 7.5 mg-acetaminophen 1 tablet PO BID PRN Pain 09/18/19 05/19/22 325 mg tablet omeprazole 20 mg capsule,delayed 20 mg PO BIDAC GERD 09/18/19 05/19/22 release topiramate 25 mg tablet 125 mg PO HS PRN Pain 09/18/19 05/19/22 dicyclomine 10 mg capsule 10 mg PO TID 11/22/21 05/19/22 fluoxetine 40 mg capsule 40 mg PO DAILY 11/23/21 05/19/22 losartan 100 mg tablet 100 mg PO DAILY 11/23/21 05/19/22 naproxen 500 mg tablet,delayed 500 mg PO BID 11/23/21 05/19/22 release lamotrigine 25 mg tablet 25 mg PO DAILY 05/19/22 05/19/22 metoprolol tartrate 50 mg tablet 50 mg PO DAILY 05/19/22 05/19/22 propranolol 20 mg tablet 20 mg PO BID 05/19/22 05/19/22 <Autumn Low PA-C - Last Filed: 05/19/22 20:11> Allergies/Adverse Reactions: Allergies Allergy/AdvReac Type Severity Reaction Status Date / Time Penicillins Allergy Intermediate Rash Verified 11/22/21 15:11 Sulfa (Sulfonamide Allergy Mild Rash Verified 11/22/21 15:11 Antibiotics) <Autumn Low PA-C - Last Filed: 05/19/22 20:11> Review of Systems Review of Systems: CONSTITUTIONAL: Denies fever, chills, or sweats. CARDIOVASCULAR: See HPI RESPIRATORY: See HPI GASTROINTESTINAL: See HPI GENITOURINARY: Denies dysuria or hematuria. MUSCULOSKELETAL: See HPI NEUROLOGIC: See HPI <Autumn Low PA-C - Last Filed: 05/19/22 20:11> All systems reviewed & are unremarkable except as noted in HPI and below <Autumn Low PA-C - Last Filed: 05/19/22 20:11> [facility] Past Medical History Medical History: Medical History Anxiety COPD (chronic obstructive pulmonary disease) Coronary artery disease Extrapyramidal syndrome GERD (gastroesophageal reflux disease) Hypertension Sleep apnea <Autumn Low PA-C - Last Filed: 05/19/22 20:11> Surgical History Surgical History: Surgical History H/O adenoidectomy H/O cardiac catheterization H/O colectomy History of tonsillectomy <Autumn Low PA-C - Last Filed: 05/19/22 20:11> Family History Family History: Family History Mother Family history of diabetes mellitus in first degree relative Cerebro
[2022-05-19 11:42] LABS: Alanine Aminotransferase 80 U/L (6-50); Alkaline Phosphatase 110 U/L (38-126); Anion Gap 17 mmol/L (8-16); Aspartate Amino Transferase 62 U/L (17-59); Bilirubin,Total 1.3 mg/dL (0.2-1.3); Blood Urea Nitrogen 32 mg/dL (9-20); Calcium 9.2 mg/dL (8.4-10.2); Carbon Dioxide 22 mmol/L (22-30); Chloride 101 mmol/L (98-107); Estimated CRCL calculation 28 ml/min; Estimated Glomerular Filt Rate 18; Glucose 127 mg/dL (65-110); Lipase 65 U/L (23-300); Potassium 3.9 mmol/L (3.4-5.0); Sodium 140 mmol/L (137-145)
[2022-05-19] MEDS: ASPIRIN 81 MG CHEWABLE TABLET 324 MG PO (11:46)
--- NOTE | 2022-05-19 11:49 | PC.NURSE ---
pt states that he also has not taken his baclofen in two days. pt states that he sometimes takes three tablets at once, instead of 1 tablet TID.
[2022-05-19 11:51] LABS: Magnesium 2.1 mg/dL (1.6-2.3)
[2022-05-19 11:56] LABS: Troponin I 0.352 ng/mL (0.000-0.034)
[2022-05-19] MEDS: SODIUM CHLORIDE 0.9% IV 1,000 ML 999 ML IV CONT ×2 (12:00→14:31)
[2022-05-19] MEDS: ONDANSETRON INJ 4 MG/2 ML VIAL IV PUSH (12:00)
[2022-05-19] MEDS: MORPHINE SULFATE (*CRX) 4 MG/ML INJ IV PUSH (12:35)
[2022-05-19 12:45] LABS: Partial Thromboplastin Time 27.5 SECONDS (22.3-36.8); Prothrombin Time 13.1 Seconds (11.1-14.7)
[2022-05-19 13:24] LABS: SARS-CoV-2 RNA PCR Negative
[2022-05-19] MEDS: MORPHINE SULFATE (*CRX) 2 MG/ML INJ IV PUSH (13:44)
--- NOTE | 2022-05-19 13:54 | PM.IMHP ---
H&P: HPI History of Present Illness Date/Time: 05/19/22 13:54 Chief Complaint: chest pressure Narrative: 51M with a past medical history of myocardial infarction in 2016 s/p PCI, hypertension, hyperlipidemia, polysubstance abuse, migraine, Bipolar I, anxiety, depression, multiple suicide attempts, obstructive sleep apnea, chronic back pain, chronic muscle spasms who presents to the emergency department due to chest pressure. Patient reports chest pressure started on Thursday morning around 11am shortly [place]. Patient also reports diaphoresis and shortness of breath. He says he has had this in the past when he required cardiac cath and stenting but he thought maybe it was his anxiety so he decided not to go to the emergency department. Patient reports this morning around 0600 he woke up and checked his blood pressure as he usually does but it was much higher than usual with a systolic of 211. He says normally his blood pressure is 170s-180s systolic and that he has been to the doctor monthly for the past few months starting new medication to get his blood pressure under control. Patient initially went to [place] emergency department but left when he was told he had to wait even though he reports the waiting room being empty. Patient also reports persistent diaphoresis, chest pressure, shortness of breath with exertion, nausea and vomiting this morning, which he says he has had in the past when having issues with his heart. He also reports palpitations that wake him while sleeping but says his holter monitor was negative. He quit smoking in 2016 after 2ppd x 32 years. Patient also reports passing out on , May 15, 2022 and going to the emergency department in [place] for this. He was discharged home. Patient also report sharp pain in his right arm that started this morning. He states he has also been having difficulty urinating for the past week with hesitancy, stranguria and hematuria. He has chronic back pain with right lower extremity weakness and numbness. He denies fever, chills, cough, sore throat, abdominal pain, constipation, diarrhea, dysuria. He has chronic muscle aches for which he takes baclofen, which he reports abusing taking 3 tabs three times a day. In the emergency department, Troponin 0.352, creatinine kinase 363, Creatinine 3.50, UDS positive for opiates, benzodiazepines and cannabinoids. Patient given ASA 324 mg, Morphine, heparin ggt started and 2L NS bolus given. Review of Systems Constitutional: Constitutional: Reports body ache(s), Denies chills and Denies weakness ENT: Denies nasal congestion and Denies nasal discharge Cardiovascular: Cardiovascular: Reports chest pain, Reports diaphoresis, Denies leg edema, Reports lightheadedness and Reports palpitations Respiratory: Respiratory: Denies chest congestion, Denies cough, Reports dyspnea, Reports dyspnea on exertion and Denies wheezing Gastrointestinal: Gastrointestinal: Denies abdominal pain, Denies melena, Denies hematochezia, Denies constipation, Denies diarrhea, Reports nausea and Reports vomiting Genitourinary: Genitourinary: Reports hematuria, Denies dysuria and Reports urinary hesitancy Musculoskeletal: Musculoskeletal: Reports back pain and Reports myalgias Integumentary/Breasts: Skin/Breast: Reports erythema Neurologic: Denies headache(s) and Reports numbness Psychiatric: Psychiatric: Reports anxiety, Denies confusion and Reports depression PMFSH Past Medical History Medical History (Updated 05/19/22 @ 23:29 by Mikayla Mora MD) Anxiety COPD (chronic obstructive pulmonary disease) Coronary artery disease Extrapyramidal syndrome GERD (gastroesophageal reflux disease) Hypertension Migraine Sleep apnea Surgical History Surgical History H/O adenoidectomy H/O cardiac catheterization H/O colectomy History of tonsillectomy
[2022-05-19 14:05] LABS: Appearance Urine Slightly Cloudy (Clear); Bilirubin Urine 1+ (Negative); Blood Urine Negative (Negative); Color Urine Yellow (Yellow); Glucose Urine UA Negative (Negative); Ketones Urine Negative (Negative); Leukocyte Esterase Ur Negative LEU/UL (Negative); Nitrate Urine Negative (Negative); Protein Urine 2+ mg/dL (Negative); Specific Grav Ur >= 1.030 (1.001-1.035)
[2022-05-19 14:15] LABS: Bacteria Urine Trace /hpf; Mucus Urine Rare /lpf; Squamous Epithelial Cell Urine Few /hpf (Few); WBC Urine 0-3 /hpf
[2022-05-19 14:17] LABS: Add Urine Microscopic? YES
[2022-05-19] MEDS: hydrALAZINE HCL 20 MG/ML VIAL 10 MG IV PUSH (14:31)
--- NOTE | 2022-05-19 14:54 | ECG_ITS ---
Measurements Intervals [place] Rate: 109 P: 62 OK: 150 QRS: -32 QRSD: 93 T: 46 QT: 329 QTc: 444 Interpretive Statements SINUS TACHYCARDIA LEFT AXIS DEVIATION BORDERLINE R WAVE PROGRESSION, ANTERIOR LEADS BASELINE ARTIFACT- I, II, AVR, AVF ABNORMAL ECG Electronically Signed On 05-21-2022 15:13:[address] D.O.
[2022-05-19] MEDS: HEPARIN SODIUM 5,000 UNITS/ML VIAL 4000 UNITS IV PUSH ×2 (15:39→23:17)
[2022-05-19] MEDS: HEPARIN SOD/D5W 100 UNITS/ML 25,000 UNITS/250 ML BAG 10 UNITS IV CONT (15:39)
[2022-05-19 15:58] LABS: Creatine Kinase 363 U/L (55-170)
[2022-05-19 16:28] LABS: Amphetamine Screen Urine Negative (Negative); Barbiturate Screen Urine Negative (Negative); Benzodiazepines Screen Urine Positive (Negative); Cannabinoid Screen Urine Positive (Negative); Cocaine Screen Urine Negative (Negative); Methadone Screen Urine Negative (Negative); Opiate Screen Urine Positive (Negative); Phencyclidine Screen Urine Negative (Negative)
--- NOTE | 2022-05-19 17:17 | ADMGEN ---
This patient, Hung Jung Sr., was admitted to IMU Room 214-01 at 1715 on 05/19/2022. Report received from Priyanka GONZALES. Patient/family oriented to hospital policies and general routines including ID bracelet, bed and alarms, visiting hours, pain management, procedures, bathroom and other care routines, personal items, smoking policy, room service/diet, and visiting hours. Information on how to activate the Rapid Response Team has been discussed. Patient/Family are encouraged to report perceived risks to care and to ask questions if they do not understand what they are told or what they should do.
[2022-05-19] MEDS: FLUoxetine HCL 20 MG CAPSULE 40 MG PO (20:38)
[2022-05-19] MEDS: lamoTRIgine 25 MG TABLET PO (20:40)
[2022-05-19] MEDS: NIFEdipine 30 MG TAB.ER.24 PO (20:40)
[2022-05-19] MEDS: METOPROLOL TARTRATE 50 MG TAB PO (20:40)
[2022-05-19] MEDS: SODIUM CHLORIDE 0.9% IV 1,000 ML 125 ML IV CONT (20:42)
[2022-05-19] MEDS: HYDROcodone/acetaminophen (*CRX) 7.5-325 MG TABLET 1 TAB PO (20:49)
[2022-05-19 21:58] LABS: Anion Gap 11 mmol/L (8-16); Blood Urea Nitrogen 33 mg/dL (9-20); Calcium 9.1 mg/dL (8.4-10.2); Carbon Dioxide 27 mmol/L (22-30); Chloride 101 mmol/L (98-107); Creatine Kinase 868 U/L (55-170); Estimated CRCL calculation 40 ml/min; Estimated Glomerular Filt Rate 29; Glucose 116 mg/dL (65-110); Potassium 4.1 mmol/L (3.4-5.0); Sodium 139 mmol/L (137-145)
[2022-05-20] VITALS (11 sets, daily range): BP systolic 125–163; BP diastolic 68–99; PULSE 61–86; RESP 16–20; TEMP 36.3–36.7; O2SAT 95–100; BMI 37.3
--- NOTE | 2022-05-20 | ECHO_ITS ---
Patient Info Name: Hung Jung Age: 51 years : 1970 Gender: Male Ht: 69 in Wt: 240 lbs BSA: 2.34 m2 HR: 80 bpm BP: 148 / 89 mmHg Heart Rhythm: Sinus Rhythm Technical Quality: Fair Exam Date: 05/20/2022 9:39 AM Exam Location: [facility] Patient Status: Inpatient Admit Date: 05/19/2022 Staff Ordering Physician: Mikayla Mora MD Health Care Marketing Specialist: Shraddha Askew RDCS Attending Provider: Iban Vail MD Referring Physician: Abby SHERMAN; Exam Type: CA echo doppler color flow Study Info Indications - chest pressure Complete two-dimensional, color flow and Doppler transthoracic echocardiogram is performed. Summary 1. Complete two-dimensional, color flow and Doppler transthoracic echocardiogram is performed. 2. Normal LV size, moderate LVH, normal LV systolic and diastolic function, ejection fraction 65-70%. Mild mitral annular calcification, no significant MR. Mild aortic valve sclerosis, no hemodynamically significant stenosis. Trace TR, RVSP 40 mmHg. Sinus rhythm. Left Ventricle Left ventricular chamber dimension is normal. Left ventricular systolic function is normal, estimated at 65-70%. There is moderately increased left ventricular wall thickness. The left ventricular diastolic function is normal. Right Ventricle Right ventricular chamber dimension is normal. Right ventricular systolic function is normal. Left Atria Left atrial chamber dimension is normal. Aortic Valve There is mild aortic valve sclerosis. There is no aortic valve stenosis. Pulmonic Valve The pulmonic valve is not well visualized. Mitral Valve There is no mitral valve regurgitation. The mitral valve annulus is mildly calcified. Tricuspid Valve The tricuspid valve leaflets are normal. There is trace tricuspid valve regurgitation. Mild pulmonary hypertension, estimated pulmonary arterial systolic pressure is 40 mmHg. Pericardium/Pleural The pericardium appears epicardial fat pad. Aorta The aortic root size at the sinus of Valsalva is normal. Left Ventricular Outflow Tract Name Value Normal LVOT 2D LVOT Diameter 2.0 cm LVOT Doppler LVOT Peak Gradient 2 mmHg LVOT Mean Gradient 1 mmHg LVOT VTI 16 cm LVOT VTI/AV VTI Ratio 0.7 LVOT Stroke Volume 51 ml LVOT CO 3.5 l/min LVOT CI 1.5 l/min/m2 Pulmonic Valve Name Value Normal RVOT Doppler RVOT Peak Gradient 3 mmHg PV Doppler PV Peak Gradient 4 mmHg Mitral Valve Name
[2022-05-20] MEDS: SODIUM CHLORIDE 0.9% IV 1,000 ML 150 ML IV CONT ×3 (03:50→17:16)
[2022-05-20 04:41] LABS: Basophils Absolute Auto 0.1 K/mm3 (0.0-0.1); Basophils Percent Auto 0.6 % (0.2-1.2); Eosinophils Absolute Auto 0.2 K/mm3 (0-0.3); Eosinophils Percent Auto 1.8 % (0-4.4); Hemoglobin 14.9 g/dL (14.0-18.0); Immature Granulocyte Absolute 0.05 K/mm3 (0.00-0.031); Immature Granulocyte Percent A 0.5 % (0-0.5); Lymphocytes Absolute Auto 4.32 K/mm3 (0.9-3.2); Lymphocytes Percent Auto 41.9 % (18.3-44.2); Mean Corpuscular HGB Conc 32.4 g/dl (32-36); Mean Corpuscular Hemoglobin 32.4 pg (26-34); Mean Platelet Volume 8.7 fl (7.4-10.4); Monocytes Absolute Auto 0.8 K/mm3 (0.1-0.6); Monocytes Percent Auto 7.7 % (2.6-8.5); Neutrophils Absolute Auto 4.9 K/mm3 (1.3-6.7); Neutrophils Percent Auto 47.5 % (45.5-73.1); Platelet Count Result 190 k/mm3 (150-375); Red Cell Distribution Width 12.9 % (11.5-14.5); White Blood Count 10.3 K/mm3 (4.5-10.0)
[2022-05-20 04:50] LABS: Creatine Kinase 1469 U/L (55-170)
[2022-05-20 04:56] LABS: Partial Thromboplastin Time 60.1 SECONDS (22.3-36.8)
[2022-05-20 05:16] LABS: Creatinine Urine 331.6 mg/dL; Urea Random Urine 1054 MG/DL
[2022-05-20 05:17] LABS: Sodium Urine Random 94 meq/L
[2022-05-20 05:32] LABS: Procalcitonin 0.2 ng/mL
[2022-05-20 05:33] LABS: HIV 1/2 Ab P24 Ag Result Negative (Negative)
[2022-05-20] MEDS: HEPARIN SODIUM 5,000 UNITS/ML VIAL 3500 UNITS IV PUSH (05:35)
[2022-05-20 05:44] LABS: Hepatitis B Surface Antigen Negative (Negative)
[2022-05-20 05:50] LABS: HAV RESULT Negative (Negative); Hepatitis B Core IgM Result Negative (Negative)
[2022-05-20 06:01] LABS: Hepatitis C Virus Antibody Negative (Negative)
--- NOTE | 2022-05-20 08:52 | PM.CNCAR ---
Assessment and Plan Assessment and plan (1) Rhabdomyolysis: Code(s): M62.82 - Rhabdomyolysis Status: Acute Assessment and Plan: 51-year-old male with multiple medical problems including history of CAD, status post PCI/stenting of mid LAD and RPDA on 12/04/2016 and 12/18/2016 respectively in the setting of non ST elevation MT; hypertension, obesity, history of tobacco abuse, marijuana abuse,? Psychiatric disorder, noncompliance. Patient admitted to the hospital with multiple complaints including abdominal pain, nausea, vomiting, muscle cramps, chest pressure. He recently had heat exposure. He was found to have rhabdomyolysis, acute kidney injury. He also has mild troponin elevation in the setting of rhabdomyolysis, KAITY. Troponin elevation likely type 2 MT. He currently does not have any active cardiac ischemic symptoms. Bedside echocardiogram on my personal evaluation showed LVH, preserved LV systolic function. Continue IV hydration. Monitor for improvement in renal function. Resume aspirin, continue metoprolol. Patient's home medications show both metoprolol and propranolol. Would discontinue propranolol and continue metoprolol. May resume statin when rhabdomyolysis completely resolves. Continue to monitor on telemetry for now. (2) Acute kidney injury: Code(s): N17.9 - Acute kidney failure, unspecified Status: Acute Assessment and Plan: IV hydration (3) Elevated troponin: Code(s): R77.8 - Other specified abnormalities of plasma proteins Status: Acute Assessment and Plan: Likely type 2 MT in the setting of rhabdomyolysis, acute kidney injury. (4) Coronary artery disease: Code(s): I25.10 - Atherosclerotic heart disease of [place] coronary artery without angina pectoris Status: Acute Assessment and Plan: Patient has known CAD, history of PCI/stenting. Medical treatment with antiplatelet therapy, beta-fred. Statin when rhabdomyolysis resolves. Patient has not been compliant with medical regimen and outpatient follow-up. He was strongly advised to be compliant with medications and follow-up with Cardiology. He verbalized understanding. (5) Noncompliance: Code(s): Z91.19 - Patient's noncompliance with other medical treatment and regimen Status: Acute Assessment and Plan: Counseling was done regarding compliance. Additional Plan Patient was advised to follow up with Cardiology after hospital discharge. We will follow the patient on p.r.n. basis during hospitalization. History of Present Illness History of Present Illness Consult date/time: 05/20/22 08:52 Requesting physician: Autumn Low PA-C Reason For Visit: Elevated Troponin/CP/leukocytosis/KAITY Narrative: DATE OF CONSULT: 05/20/2022 REASON FOR CONSULT: Elevated troponin, chest pain, leukocytosis, KAITY REQUESTING PHYSICIAN:Autumn Low PA-C CHIEF COMPLAINT: Nausea, vomiting, abdominal pain, chest pressure HPI: 51-year-old male with history of CAD, status post PCI/stenting of mid LAD and RPDA on 12/04/2016 and 12/18/2016 respectively in the setting of non ST elevation MT; hypertension, obesity, history of tobacco abuse, marijuana abuse,? Psychiatric disorder, noncompliance. Patient presented to [facility] Emergency Room on 05/19/2022 with complaints of left-sided abdominal pain, nausea and vomiting. Patient states that he was exposed to extreme heat on the weekend on a river float, and next morning, experience nausea vomiting abdominal pain and muscle cramps. His symptoms are associated with chest pressure. He denied dizziness or syncope. Patient has known CAD and had PCI/stenting of mid LAD and RPDA on 12/04/2016 and 12/18/2016 respectively in the setting of non ST elevation MT, performed by Dr. Sumner. He has not had regular cardiology follow-up over the years. He states that he has to see a weight inspector at [facility], however has not had regular follow-up. Marya
[2022-05-20 09:48] LABS: Anion Gap 9 mmol/L (8-16); Blood Urea Nitrogen 32 mg/dL (9-20); Calcium 8.7 mg/dL (8.4-10.2); Carbon Dioxide 26 mmol/L (22-30); Chloride 104 mmol/L (98-107); Estimated CRCL calculation 46 ml/min; Estimated Glomerular Filt Rate 33; Glucose 100 mg/dL (65-110); Potassium 4.4 mmol/L (3.4-5.0); Sodium 139 mmol/L (137-145)
[2022-05-20] MEDS: HYDROcodone/acetaminophen (*CRX) 7.5-325 MG TABLET 1 TAB PO ×3 (10:11→20:44)
[2022-05-20] MEDS: PANTOPRAZOLE 40 MG TABLET PO ×2 (10:12→20:44)
[2022-05-20] MEDS: DICYCLOMINE HCL 10 MG CAPSULE PO ×3 (10:12→17:16)
[2022-05-20] MEDS: FLUoxetine HCL 20 MG CAPSULE 40 MG PO (10:12)
[2022-05-20] MEDS: METOPROLOL TARTRATE 50 MG TAB PO (10:12)
[2022-05-20] MEDS: ASPIRIN 81 MG ENTERIC TABLET PO (10:13)
[2022-05-20] MEDS: lamoTRIgine 25 MG TABLET PO (10:13)
[2022-05-20] MEDS: NIFEdipine 30 MG TAB.ER.24 PO (10:27)
[2022-05-20 12:18] LABS: Partial Thromboplastin Time 83.4 SECONDS (22.3-36.8)
[2022-05-20] MEDS: HEPARIN SOD/D5W 100 UNITS/ML 25,000 UNITS/250 ML BAG 15 UNITS IV CONT (13:12)
[2022-05-20] MEDS: hydrOXYzine HCL 25 MG TABLET PO ×2 (13:15→20:43)
[2022-05-20] MEDS: BACLOFEN 10 MG TABLET PO ×2 (14:41→20:43)
--- NOTE | 2022-05-20 15:25 | PM.CNNEP ---
Assessment and Plan Additional Plan 1. Hung has acute kidney injury. He typically has a creatinine between 1.1 and 1.2 as demonstrated by labs back in October. He has urine electrolytes which showed a fractional excretion of urea of only 21%, consistent with dehydration. renal ultrasound is unremarkable CPK mildly elevated but on the rise The patient does have an elevated CK but not high enough to cause kidney disease. Will check another 1 the because it is trending upwards. He looks like he is probably dehydrated. He has had nausea and vomiting And has not been taking much in. He has been taking naproxen at home which of course can add to any renal dysfunction. He is on losartan as well which can exaggerate the response of creatinine to dehydration. Allergic interstitial nephritis and glomerulonephritis are unlikely in this clinical scenario. at this point he is getting IV fluids. I agree with continuing these. His losartan and Naprosyn are on hold. Will check a renal panel in the morning. 2. The patient has hypertension. This is very high. He is on nifedipine and losartan as well as propranolol for this. His blood pressure was still high he had a renal arterial Doppler which showed renal artery stenosis. he will need a CT angio to verify this. Will wait until his renal function returns to normal before we do this. In the meantime his blood pressure is better. The last 1 was 147. He is on metoprolol and nifedipine. We will continue to hold the losartan for now. Since his blood pressure is trending down words I will not add anything new to his regimen. 3. The patient has positive troponins. Cardiology is seeing the patient. 4. Has a history of polysubstance abuse. Cocaine was negative but marijuana, benzodiazepines, and opiates showed up. 5. YESENIA pt doesn't use the cpap maching History of Present Illness Reason for Consult Consult date: 05/20/22 Chief Complaint Chief complaint: Elevated Troponin/CP/leukocytosis/KAITY History of Present Illness Narrative: Hung is a very pleasant 51-year-old gentleman who has multiple medical problems including hypertension, hyperlipidemia, coronary disease status post PCI, obstructive sleep apnea, chronic back pain, bipolar depression, anxiety, multiple suicide attempts, polysubstance abuse, migraines. The patient was well in till Thursday. He went on a float trip on Thursday [place] the [place] but then Thursday morning woke up feeling poorly. He has shortness of breath, lightheadedness, sweating, chest pressure, nausea and vomiting so he was taken home Thursday morning. He thought he would get better and so did not go to the ER Thursday or Thursday but then on he woke up and still felt bad so came to the ER. He was evaluated in the ER. His blood pressure was very high, his creatinine was high, he looked Dehydrated. His troponins were elevated, and his CPK was elevated. he was admitted to the floor and given IV fluids. His creatinine came down a little bit. Renal consultation was requested for the high creatinine. The patient has not had any kidney problems in the past. He has not had any bloody urine foamy urine kidney stones or bladder infections by report. he did not have any black or bloody stools. He says that at times his vomitus was black but never bloody. He has had hypertension for many years. Blood pressure generally runs in the 160s and 170s. He has sleep apnea for many years as well. About a year ago his CPAP machine broke and he never got a new on because he could not afford it. Review of Systems Constitutional: Constitutional: Reports no additional constitutional complaints Eyes: Eyes: Reports no additional eye complaints ENT: Reports system reviewed and no additional complaints, except as documented Cardiovascular: Cardiovascular: Reports no additional cardiovascular compla
--- NOTE | 2022-05-20 18:46 | PC.NURSE ---
This patient, Hung Jung Sr., was transferred to [facility] on 05/20/22 at 1844. Personal belongings sent with patient. Report given to Anya GONZALES. Appropriate documentation sent with patient.
[2022-05-20 18:47] LABS: Creatine Kinase 819 U/L (55-170)
[2022-05-20 19:28] LABS: Partial Thromboplastin Time 80.3 SECONDS (22.3-36.8)
[2022-05-20] MEDS: TOPIRAMATE 25 MG TABLET 125 MG PO (20:43)
--- NOTE | 2022-05-20 22:50 | PM.IMPN ---
Progress Note: A&P Assessment and Plan (1) Chest pain: Qualifiers: Chest pain type: unspecified Qualified Code(s): R07.9 - Chest pain, unspecified Code(s): R07.9 - Chest pain, unspecified Status: Acute Assessment and Plan: Patient significantly improved after hydration and no longer has chest pain. -Continue ASA and metoprolol -Appreciate Cardiology recommendations (2) Elevated troponin: Code(s): R77.8 - Other specified abnormalities of plasma proteins Status: Acute Assessment and Plan: This appears to have resolved. Was likely due to heat. (3) Acute kidney injury: Code(s): N17.9 - Acute kidney failure, unspecified Status: Acute Assessment and Plan: Improved this morning. Renal ultrasound unremarkable. Renal artery duplex shows bilateral renal artery stenosis, which may explain why his blood pressure has been so difficult to control. -Appreciate recommendations from Nephrology -Avoid nephrotoxic agents -Renally dose medications -Will continue IVF due to rising CK (4) Rhabdomyolysis: Code(s): M62.82 - Rhabdomyolysis Status: Acute Assessment and Plan: CK increasing. May be related to heat exposure over the weekend after excessive sun exposure on Thursday. Unclear etiology. S/p 2L NS in ED on arrival. -NS at 150 cc/hr (5) Hypertensive urgency: Code(s): I16.0 - Hypertensive urgency Status: Acute Assessment and Plan: SBP 160s-170s uncontrolled on 4 agents - propanolol 20 mg BID, metoprolol 50 mg daily, losartan 100 mg, nifedipine 30 mg qam. -Continue metoprolol -Holding losartan due to Acute Renal Failure -Continue nifedipine -Avoid hydralazine due to HR (6) Polysubstance abuse: Code(s): F19.10 - Other psychoactive substance abuse, uncomplicated Status: Acute Assessment and Plan: Currently denies hx of IVDA or anything other than marijuana but does report abusing his bacolofen. UDS as noted above. Will monitor. (7) Leukocytosis: Qualifiers: Leukocytosis type: unspecified Qualified Code(s): D72.829 - Elevated white blood cell count, unspecified Code(s): D72.829 - Elevated white blood cell count, unspecified Status: Acute Assessment and Plan: Afebrile. Procalcitonin low. Resolving without intervention. -Monitor fever curve for now (8) Coronary artery disease: Code(s): I25.10 - Atherosclerotic heart disease of [place] coronary artery without angina pectoris Status: Acute Assessment and Plan: On BB at home. Continue aspirin. Holding statin due to LFTs. Holding statin. (9) Sleep apnea: Code(s): G47.30 - Sleep apnea, unspecified Status: Acute Assessment and Plan: Broke CPAP machine over a year ago and never replaced due to financial difficulty. (10) Lumbar back pain with radiculopathy affecting right lower extremity: Code(s): M54.16 - Radiculopathy, lumbar region Status: Acute Assessment and Plan: Has chronic RLE numbness and weakness. (11) Stranguria: Code(s): R30.0 - Dysuria Status: Acute Assessment and Plan: Unclear what this is. renal ultrasound shows no hydronephrosis or obstruction. (12) GERD (gastroesophageal reflux disease): Qualifiers: Esophagitis presence: esophagitis presence not specified Qualified Code(s): K21.9 - Gastro-esophageal reflux disease without esophagitis Code(s): K21.9 - Gastro-esophageal reflux disease without esophagitis Status: Acute Assessment and Plan: On omeprazole at home. Continue PPI. (13) Major depressive disorder with current active episode: Code(s): F32.9 - Major depressive disorder, single episode, unspecified Status: Acute Assessment and Plan: Continue fluoxetine. (14) Transamini
[2022-05-21] MEDS: SODIUM CHLORIDE 0.9% IV 1,000 ML 150 ML IV CONT (00:11)
[2022-05-21 00:47] LABS: Creatinine Urine 91.4 mg/dL
[2022-05-21 00:58] LABS: Total Protein Urine Random < 5 mg/dL; Ur Ttl Prot Creatinine Ratio < 0.05 mg/mg (0-0.20)
[2022-05-21 05:57] LABS: Basophils Absolute Auto 0.1 K/mm3 (0.0-0.1); Basophils Percent Auto 0.8 % (0.2-1.2); Eosinophils Absolute Auto 0.2 K/mm3 (0-0.3); Eosinophils Percent Auto 2.8 % (0-4.4); Hematocrit 39.8 % (42.0-52.0); Hemoglobin 12.9 g/dL (14.0-18.0); Immature Granulocyte Absolute 0.02 K/mm3 (0.00-0.031); Immature Granulocyte Percent A 0.3 % (0-0.5); Lymphocytes Absolute Auto 2.61 K/mm3 (0.9-3.2); Lymphocytes Percent Auto 43.1 % (18.3-44.2); Mean Corpuscular HGB Conc 32.4 g/dl (32-36); Mean Corpuscular Hemoglobin 32.4 pg (26-34); Mean Platelet Volume 9.1 fl (7.4-10.4); Monocytes Absolute Auto 0.5 K/mm3 (0.1-0.6); Monocytes Percent Auto 8.7 % (2.6-8.5); Neutrophils Absolute Auto 2.7 K/mm3 (1.3-6.7); Neutrophils Percent Auto 44.3 % (45.5-73.1); Platelet Count Result 147 k/mm3 (150-375); Red Blood Count 3.98 M/mm3 (4.6-6.20); Red Cell Distribution Width 12.6 % (11.5-14.5); White Blood Count 6.1 K/mm3 (4.5-10.0)
[2022-05-21] MEDS: HEPARIN SOD/D5W 100 UNITS/ML 25,000 UNITS/250 ML BAG 15 UNITS IV CONT (06:13)
[2022-05-21 06:24] LABS: Alanine Aminotransferase 70 U/L (6-50); Albumin Level 3.3 g/dL (3.5-5.1); Alkaline Phosphatase 79 U/L (38-126); Anion Gap 7 mmol/L (8-16); Aspartate Amino Transferase 58 U/L (17-59); Bilirubin,Total 0.8 mg/dL (0.2-1.3); Blood Urea Nitrogen 22 mg/dL (9-20); Calcium 8.4 mg/dL (8.4-10.2); Carbon Dioxide 24 mmol/L (22-30); Chloride 105 mmol/L (98-107); Creatine Kinase 641 U/L (55-170); Estimated CRCL calculation 74 ml/min; Estimated Glomerular Filt Rate 58; Glucose 93 mg/dL (65-110); Phosphorus 2.6 mg/dL (2.5-4.5); Sodium 136 mmol/L (137-145)
--- NOTE | 2022-05-21 07:35 | PM.IMPN ---
Progress Note: A&P Assessment and Plan (1) Chest pain: Qualifiers: Chest pain type: unspecified Qualified Code(s): R07.9 - Chest pain, unspecified Code(s): R07.9 - Chest pain, unspecified Status: Acute Assessment and Plan: Patient significantly improved after hydration and no longer has chest pain. Resolved. -Continue ASA and metoprolol -Appreciate Cardiology recommendations (2) Elevated troponin: Code(s): R77.8 - Other specified abnormalities of plasma proteins Status: Acute Assessment and Plan: This appears to have resolved. Was likely due to heat. (3) Acute kidney injury: Code(s): N17.9 - Acute kidney failure, unspecified Status: Acute Assessment and Plan: Renal ultrasound unremarkable. Renal artery duplex shows bilateral renal artery stenosis, which may explain why his blood pressure has been so difficult to control. Creatinine now at baseline. -Appreciate recommendations from Nephrology -Avoid nephrotoxic agents -Renally dose medications -Decreased IVF to 125 cc/hr this morning (4) Rhabdomyolysis: Code(s): M62.82 - Rhabdomyolysis Status: Acute Assessment and Plan: May be related to heat exposure over the weekend after excessive sun exposure on Thursday. Unclear etiology. S/p 2L NS in ED on arrival. CK downtrending. -NS at 125 cc/hr (5) Hypertensive urgency: Code(s): I16.0 - Hypertensive urgency Status: Acute Assessment and Plan: Noted on initial presentation. SBP 160s-170s uncontrolled on 4 agents - propranolol 20 mg BID, metoprolol 50 mg daily, losartan 100 mg, nifedipine 30 mg qam. Renal artery stenosis found on renal duplex. Patient is now normotensive. -Continue metoprolol -Holding losartan -Continue nifedipine -Avoid hydralazine due to HR (6) Polysubstance abuse: Code(s): F19.10 - Other psychoactive substance abuse, uncomplicated Status: Acute Assessment and Plan: Currently denies hx of IVDA or anything other than marijuana but does report abusing his bacolofen. UDS as noted above. Will monitor. (7) Leukocytosis: Qualifiers: Leukocytosis type: unspecified Qualified Code(s): D72.829 - Elevated white blood cell count, unspecified Code(s): D72.829 - Elevated white blood cell count, unspecified Status: Acute Assessment and Plan: Afebrile. Leukocytosis resolved. (8) Coronary artery disease: Code(s): I25.10 - Atherosclerotic heart disease of [place] coronary artery without angina pectoris Status: Acute Assessment and Plan: On BB at home. Continue aspirin. Holding statin due to LFTs. Holding statin. (9) Sleep apnea: Code(s): G47.30 - Sleep apnea, unspecified Status: Acute Assessment and Plan: Broke CPAP machine over a year ago and never replaced due to financial difficulty. (10) Lumbar back pain with radiculopathy affecting right lower extremity: Code(s): M54.16 - Radiculopathy, lumbar region Status: Acute Assessment and Plan: Has chronic RLE numbness and weakness. (11) Stranguria: Code(s): R30.0 - Dysuria Status: Acute Assessment and Plan: May have had severe dehydration? (12) GERD (gastroesophageal reflux disease): Qualifiers: Esophagitis presence: esophagitis presence not specified Qualified Code(s): K21.9 - Gastro-esophageal reflux disease without esophagitis Code(s): K21.9 - Gastro-esophageal reflux disease without esophagitis Status: Acute Assessment and Plan: On omeprazole at home. Continue PPI. (13) Major depressive disorder with current active episode: Code(s): F32.9 - Major depressive disorder, single episode, unspecified Status: Acute Assessment and Plan: Continue fluoxetine. (14) Transaminitis
[2022-05-21 09:02] VITALS: PULSE 72
[2022-05-21] MEDS: METOPROLOL TARTRATE 50 MG TAB PO (09:02)
[2022-05-21] MEDS: PANTOPRAZOLE 40 MG TABLET PO ×2 (09:02→20:51)
[2022-05-21] MEDS: DICYCLOMINE HCL 10 MG CAPSULE PO ×3 (09:02→16:31)
[2022-05-21] MEDS: ASPIRIN 81 MG ENTERIC TABLET PO (09:03)
[2022-05-21] MEDS: SODIUM CHLORIDE 0.9% IV 1,000 ML 125 ML IV CONT (09:03)
[2022-05-21] MEDS: NIFEdipine 30 MG TAB.ER.24 PO (09:03)
[2022-05-21] MEDS: FLUoxetine HCL 20 MG CAPSULE 40 MG PO (09:03)
[2022-05-21] MEDS: lamoTRIgine 25 MG TABLET PO (09:03)
[2022-05-21] MEDS: hydrOXYzine HCL 25 MG TABLET PO ×2 (09:11→21:13)
[2022-05-21 14:00] VITALS: BP 133/92; PULSE 62; RESP 16; TEMP 36.1; O2SAT 97
--- NOTE | 2022-05-21 14:36 | PM.PNNEP ---
Progress Note: A&P Additional Plan 1. Hung has acute kidney injury. He typically has a creatinine between 1.1 and 1.2 as demonstrated by labs back in October. U 'lytes prerenal renal ultrasound is unremarkable CPK mildly elevated but on the rise yesterday. today down to 641. he is off the naprosyn. He is getting ivfs. creatinine is down to 1.3. continue IVFs one more day 1.5 the pt had sob overnight. cxr is clear. lungs are clear. 2. The patient has hypertension. This is very high. He is on nifedipine and metoprolol for this. His bp has come down nicely. he had a renal arterial Doppler which showed renal artery stenosis. he will need a CT angio to verify this. Will wait until his renal function returns to normal before we do this. 3. The patient has positive troponins. Cardiology is seeing the patient. 4. Has a history of polysubstance abuse. Cocaine was negative but marijuana, benzodiazepines, and opiates showed up. 5. YESENIA pt doesn't use the cpap machine Subjective Date/time seen: 05/21/22 14:36 Interval history: patient feels blah. some sob over night upon wakening. no cp. eating okay Review of Systems Cardiovascular: Cardiovascular: Reports no additional cardiovascular complaints Respiratory: Respiratory: Reports no additional respiratory complaints Gastrointestinal: Gastrointestinal: Reports no additional gastrointestinal complaints Genitourinary: Genitourinary: Reports no additional male genitourinary complaints Exam Narrative: WDWN in NAD skin no rash or sq nodules head ncat lungs clear bilaterally cor reg no rub or gallop abd BS+ nontender and soft ext no edema. Objective Data Vital Signs Vital Signs: Vital Signs - 24 hr 05/20/22 16:00 05/20/22 19:04 05/20/22 23:43 Temperature 36.3 C L 36.3 C L 36.7 C Pulse Rate 66 71 71 Respiratory Rate 16 18 16 Blood Pressure 129/76 140/77 125/68 Pulse Oximetry 100 98 95 Oxygen Delivery 05/21/22 09:02 05/21/22 08:50 Temperature Pulse Rate 72 Respiratory Rate Blood Pressure Pulse Oximetry Oxygen Delivery Room Air Intake/Output Intake/Output: Intake & Output 05/18/22 05/19/22 05/20/22 05/21/22 23:59 23:59 23:59 23:59 Intake Total 2100 3730 1420 Output Total 150 700 Balance 1950 3030 1420 Meds/Results Medications: Active Medications Generic Name Dose Route Start Last Admin Trade Name Freq PRN Reason Stop Dose Admin Hydrocodone Bitart/Acetaminophen 1 tab 05/20/22 11:18 05/20/22 20:44 Hydrocodone/Acetaminophen (*Crx) 7.5-325 Mg Tablet PO 1 tab Q4H PRN Administration Pain Aspirin 81 mg 05/20/22 09:00 05/21/22 09:03 Aspirin 81 Mg Enteric Tablet PO 81 mg QAM VIC Administration Baclofen 10 mg 05/19/22 18:19 05/20/22 20:43 Baclofen 10 Mg Tablet PO 10 mg TID PRN Administration Muscle Pain Dicyclomine HCl 10 mg 05/20/22 09:00 05/21/22 12:23 Dicyclomine Hcl 10 Mg Capsule PO 10 mg TID VIC Administration Fluoxetine HCl 40 mg 05/19/22 18:20 05/21/22 09:03 Fluoxetine Hcl 20 Mg Capsule PO 40 mg DAILY VIC Administration Hydroxyzine HCl 25 mg 05/20/22 11:18 05/21/22 09:11 Hydroxyzine Hcl 25 Mg Tablet PO 25 mg Q6H PRN Administration Anxiety Lamotrigine 25 mg 05/19/22 18:20 05/21/22 09:03 Lamotrigine 25 Mg Tablet PO 25 mg DAILY VIC Administration Losartan Potassium 100 mg 05/19/22 18:25 05/19/22 22:06 Losartan Potassium 100 Mg Tablet PO Not Given DAILY VIC Metoprolol Tartrate 50 mg 05/19/22 18:20 05/21/22 09:02 Metoprolol Tartrate 50 Mg Tab PO 50 mg DAILY VIC Administration Nifedipine 30 mg 05/19/22 18:25 05/21/22 09:03 Nifedipine 30 Mg Tab.Er.24 PO 30 mg QAM VIC Administration Pantoprazole Sodium 40 mg 05/20/22 09:00 05/21/22 09:02 Pantoprazole 40 Mg Tablet PO 40 mg Q12HR VIC Administration Perflutren Lipid Microsphere 0 ml 05/19
[2022-05-21 20:00] VITALS: PULSE 79; RESP 18; O2SAT 99
[2022-05-21] MEDS: TOPIRAMATE 25 MG TABLET 125 MG PO (20:51)
[2022-05-21 22:00] VITALS: BP 160/91; PULSE 79; RESP 18; TEMP 36.3; O2SAT 99
[2022-05-22 06:43] LABS: Basophils Percent Auto 0.6 % (0.2-1.2); Eosinophils Absolute Auto 0.2 K/mm3 (0-0.3); Eosinophils Percent Auto 2.2 % (0-4.4); Hematocrit 43.7 % (42.0-52.0); Hemoglobin 15.1 g/dL (14.0-18.0); Immature Granulocyte Absolute 0.04 K/mm3 (0.00-0.031); Immature Granulocyte Percent A 0.6 % (0-0.5); Lymphocytes Absolute Auto 1.68 K/mm3 (0.9-3.2); Lymphocytes Percent Auto 23.6 % (18.3-44.2); Mean Corpuscular HGB Conc 34.6 g/dl (32-36); Mean Corpuscular Volume 95.4 fl (80-100); Mean Platelet Volume 8.7 fl (7.4-10.4); Monocytes Absolute Auto 0.5 K/mm3 (0.1-0.6); Monocytes Percent Auto 7.4 % (2.6-8.5); Neutrophils Absolute Auto 4.7 K/mm3 (1.3-6.7); Neutrophils Percent Auto 65.6 % (45.5-73.1); Platelet Count Result 178 k/mm3 (150-375); Red Blood Count 4.58 M/mm3 (4.6-6.20); Red Cell Distribution Width 12.3 % (11.5-14.5); White Blood Count 7.1 K/mm3 (4.5-10.0)
[2022-05-22 06:55] LABS: Alanine Aminotransferase 76 U/L (6-50); Albumin Level 4.2 g/dL (3.5-5.1); Alkaline Phosphatase 88 U/L (38-126); Anion Gap 14 mmol/L (8-16); Aspartate Amino Transferase 58 U/L (17-59); Bilirubin,Total 1.1 mg/dL (0.2-1.3); Blood Urea Nitrogen 19 mg/dL (9-20); Calcium 9.8 mg/dL (8.4-10.2); Carbon Dioxide 21 mmol/L (22-30); Chloride 101 mmol/L (98-107); Creatine Kinase 240 U/L (55-170); Estimated CRCL calculation 74 ml/min; Estimated Glomerular Filt Rate 58; Glucose 94 mg/dL (65-110); Phosphorus 3.1 mg/dL (2.5-4.5); Potassium 4.1 mmol/L (3.4-5.0); Sodium 136 mmol/L (137-145)
--- NOTE | 2022-05-22 07:32 | PM.DS ---
DS: Admitting Diagnosis Discharge Date 05/22/22 Admitting Diagnosis Chest Pain DS: Discharge Diagnosis Discharge Diagnosis (1) Chest pain: Qualifiers: Chest pain type: unspecified Qualified Code(s): R07.9 - Chest pain, unspecified Code(s): R07.9 - Chest pain, unspecified Status: Acute Assessment and Plan: Patient significantly improved after hydration and no longer has chest pain. Resolved. -Continue ASA and metoprolol -Appreciate Cardiology recommendations (2) Elevated troponin: Code(s): R77.8 - Other specified abnormalities of plasma proteins Status: Acute Assessment and Plan: This appears to have resolved. Was likely due to heat. (3) Acute kidney injury: Code(s): N17.9 - Acute kidney failure, unspecified Status: Acute Assessment and Plan: Renal ultrasound unremarkable. Renal artery duplex shows bilateral renal artery stenosis, which may explain why his blood pressure has been so difficult to control. Creatinine now at baseline. -Appreciate recommendations from Nephrology -Avoid nephrotoxic agents -Renally dose medications (4) Rhabdomyolysis: Code(s): M62.82 - Rhabdomyolysis Status: Acute Assessment and Plan: May be related to heat exposure over the weekend after excessive sun exposure on Thursday. Unclear etiology. S/p 2L NS in ED on arrival. CK down to 240 -NS discontinued yesterday afternoon (5) Hypertensive urgency: Code(s): I16.0 - Hypertensive urgency Status: Acute Assessment and Plan: Noted on initial presentation. SBP 160s-170s uncontrolled on 4 agents - propranolol 20 mg BID, metoprolol 50 mg daily, losartan 100 mg, nifedipine 30 mg qam. Renal artery stenosis found on renal duplex, but CTA shows no renal artery stenosis. Patient hypertensive this morning. -Continue metoprolol -Will resume losartan for discharge -Continue nifedipine (6) Polysubstance abuse: Code(s): F19.10 - Other psychoactive substance abuse, uncomplicated Status: Acute Assessment and Plan: Currently denies hx of IVDA or anything other than marijuana but does report abusing his bacolofen. UDS as noted above. Will monitor. (7) Leukocytosis: Qualifiers: Leukocytosis type: unspecified Qualified Code(s): D72.829 - Elevated white blood cell count, unspecified Code(s): D72.829 - Elevated white blood cell count, unspecified Status: Acute Assessment and Plan: Afebrile. Leukocytosis resolved. (8) Coronary artery disease: Code(s): I25.10 - Atherosclerotic heart disease of [place] coronary artery without angina pectoris Status: Acute Assessment and Plan: On BB at home. Continue aspirin. Will resume statin for discharge. (9) Sleep apnea: Code(s): G47.30 - Sleep apnea, unspecified Status: Acute Assessment and Plan: Broke CPAP machine over a year ago and never replaced due to financial difficulty. (10) Lumbar back pain with radiculopathy affecting right lower extremity: Code(s): M54.16 - Radiculopathy, lumbar region Status: Acute Assessment and Plan: Has chronic RLE numbness and weakness. (11) Stranguria: Code(s): R30.0 - Dysuria Status: Acute Assessment and Plan: May have had severe dehydration? Patient reports this has resolved. (12) GERD (gastroesophageal reflux disease): Qualifiers: Esophagitis presence: esophagitis presence not specified Qualified Code(s): K21.9 - Gastro-esophageal reflux disease without esophagitis Code(s): K21.9 - Gastro-esophageal reflux disease without esophagitis Status: Acute Assessment and Plan: On omeprazole at home. Continue PPI. (13) Major depressive disorder with current active episode: Code(s): F32.9 - Major depressive disorder,
[2022-05-22] MEDS: DICYCLOMINE HCL 10 MG CAPSULE PO ×2 (08:40→12:20)
[2022-05-22] MEDS: ASPIRIN 81 MG ENTERIC TABLET PO (08:40)
[2022-05-22] MEDS: PANTOPRAZOLE 40 MG TABLET PO (08:40)
[2022-05-22] MEDS: FLUoxetine HCL 20 MG CAPSULE 40 MG PO (08:40)
[2022-05-22] MEDS: NIFEdipine 30 MG TAB.ER.24 PO (08:40)
[2022-05-22] MEDS: METOPROLOL TARTRATE 50 MG TAB PO (08:40)
[2022-05-22] MEDS: lamoTRIgine 25 MG TABLET PO (08:41)
[2022-05-22] MEDS: diphenhydrAMINE HCl CAP 25 MG CAPSULE PO (08:45)
[2022-05-22] MEDS: LACTATED RINGERS 1,000 ML 999 ML IV CONT (12:31)
--- NOTE | 2022-05-22 13:01 | PM.PNNEP ---
Progress Note: A&P Additional Plan 1. Hung has acute kidney injury. He typically has a creatinine between 1.1 and 1.2 as demonstrated by labs back in October. U 'lytes prerenal renal ultrasound is unremarkable CPK mildly elevated but on the rise yesterday. today down to 641. he is off the naprosyn. He is getting ivfs. creatinine is currently stable at 1.3. This has resolved. 2. The patient has hypertension. This is very high. He is on nifedipine and metoprolol for this. His bp has come down nicely. he had a renal arterial Doppler which showed renal artery stenosis. CT angiogram showed no renal artery stenosis. 3. The patient has positive troponins. Cardiology is seeing the patient. 4. Has a history of polysubstance abuse. Cocaine was negative but marijuana, benzodiazepines, and opiates showed up. 5. YESENIA pt doesn't use the cpap machine Subjective Date/time seen: 05/22/22 13:01 Interval history: patient feels about the same. No shortness of breath or chest pain. Exam Narrative: WDWN in NAD skin no rash or sq nodules head ncat lungs clear cor reg no rub or gallop abd BS+ nontender and soft ext no edema or cyanosis. Objective Data Vital Signs Vital Signs: Vital Signs - 24 hr 05/21/22 14:00 05/21/22 22:00 05/21/22 20:00 Temperature 36.1 C L 36.3 C L Pulse Rate 62 79 79 Respiratory Rate 16 18 18 Blood Pressure 133/92 H 160/91 H Pulse Oximetry 97 99 99 Oxygen Delivery Room Air 05/22/22 08:40 Temperature Pulse Rate Respiratory Rate Blood Pressure Pulse Oximetry Oxygen Delivery Room Air Intake/Output Intake/Output: Intake & Output 05/19/22 05/20/22 05/21/22 05/22/22 23:59 23:59 23:59 23:59 Intake Total 2100 3730 1969 3370 Output Total 150 700 Balance 1950 3030 1970 3370 Meds/Results Medications: Active Medications Generic Name Dose Route Start Last Admin Trade Name Freq PRN Reason Stop Dose Admin Hydrocodone Bitart/Acetaminophen 1 tab 05/20/22 11:18 05/20/22 20:44 Hydrocodone/Acetaminophen (*Crx) 7.5-325 Mg Tablet PO 1 tab Q4H PRN Administration Pain Aspirin 81 mg 05/20/22 09:00 05/22/22 08:40 Aspirin 81 Mg Enteric Tablet PO 81 mg QAM VIC Administration Baclofen 10 mg 05/19/22 18:19 05/20/22 20:43 Baclofen 10 Mg Tablet PO 10 mg TID PRN Administration Muscle Pain Dicyclomine HCl 10 mg 05/20/22 09:00 05/22/22 12:20 Dicyclomine Hcl 10 Mg Capsule PO 10 mg TID VIC Administration Fluoxetine HCl 40 mg 05/19/22 18:20 05/22/22 08:40 Fluoxetine Hcl 20 Mg Capsule PO 40 mg DAILY VIC Administration Hydroxyzine HCl 25 mg 05/20/22 11:18 05/21/22 21:13 Hydroxyzine Hcl 25 Mg Tablet PO 25 mg Q6H PRN Administration Anxiety Lactated Ringer's 1,000 mls @ 999 mls/hr 05/22/22 12:21 05/22/22 12:31 Lr - Lactated Ringers Iv IV CONT 05/22/22 13:21 999 mls/hr .Q1H1M STA Administration Lamotrigine 25 mg 05/19/22 18:20 05/22/22 08:41 Lamotrigine 25 Mg Tablet PO 25 mg DAILY [facility] Administration Losartan Potassium 100 mg 05/19/22 18:25 05/19/22 22:06 Losartan Potassium 100 Mg Tablet PO Not Given DAILY [facility] Metoprolol Tartrate 50 mg 05/19/22 18:20 05/22/22 08:40 Metoprolol Tartrate 50 Mg Tab PO 50 mg DAILY VIC Administration Nifedipine 30 mg 05/19/22 18:25 05/22/22 08:40 Nifedipine 30 Mg Tab.Er.24 PO 30 mg QAM VIC Administration Pantoprazole Sodium 40 mg 05/20/22 09:00 05/22/22 08:40 Pantoprazole 40 Mg Tablet PO 40 mg Q12HR VIC Administration Perflutren Lipid Microsphere 0 ml 05/19/22 19:18 Perflutren Lipid Microspheres 1.5 Ml Vial Diluted To 10 Ml Total Volume IV PUSH ONCE PRN adequate visualization Protocol Topiramate 125 mg 05/19/22 21:00 05/21/22 20:51 Topiramate 25 Mg Tablet PO 125 mg HS VIC Administration Radiology Results: ITS Impressions Chest/Abdomen/Pe
== END 2022-05-22 13:50 | disposition home or self-care (01) | DRG 683 ==
LOC: ANHED 13:37 → ANHIMU 15:59 → ANH3MEDSUR 05-21 09:37 → ANHIMU 05-23 11:33
PROVIDERS: Internal Medicine Nephrology; Physician Assistant; Specialist; Admitting Provider Family Medicine; Emergency Provider Emergency Medicine; PCP Physician Assistant; Visit Provider Family Medicine
DX: N17.9 Acute kidney failure, unspecified (principal); M62.82 Rhabdomyolysis; G25.9 Extrapyramidal and movement disorder, unspecified; I16.0 Hypertensive urgency; Z20.822 Contact with and (suspected) exposure to COVID-19; R91.1 Solitary pulmonary nodule; R77.8 Other specified abnormalities of plasma proteins; F19.10 Other psychoactive substance abuse, uncomplicated; D72.829 Elevated white blood cell count, unspecified; E78.5 Hyperlipidemia, unspecified; E86.0 Dehydration; F12.10 Cannabis abuse, uncomplicated; F11.10 Opioid abuse, uncomplicated; F13.10 Sedative, hypnotic or anxiolytic abuse, uncomplicated; F41.9 Anxiety disorder, unspecified; F31.9 Bipolar disorder, unspecified; I25.2 Old myocardial infarction; G89.29 Other chronic pain; G47.33 Obstructive sleep apnea (adult) (pediatric); I25.10 Atherosclerotic heart disease of native coronary artery without angina pectoris; I10 Essential (primary) hypertension; J44.9 Chronic obstructive pulmonary disease, unspecified; K21.9 Gastro-esophageal reflux disease without esophagitis; K76.0 Fatty (change of) liver, not elsewhere classified; M54.16 Radiculopathy, lumbar region; M62.838 Other muscle spasm; R74.01 Elevation of levels of liver transaminase levels; R31.9 Hematuria, unspecified; R30.0 Dysuria; Z90.49 Acquired absence of other specified parts of digestive tract; Z79.1 Long term (current) use of non-steroidal anti-inflammatories (NSAID); Z87.442 Personal history of urinary calculi; Z91.19 Patient's noncompliance with other medical treatment and regimen; Z87.891 Personal history of nicotine dependence; Z91.51 Personal history of suicidal behavior; Z96.0 Presence of urogenital implants; Z95.5 Presence of coronary angioplasty implant and graft; E66.9 Obesity, unspecified; Z88.0 Allergy status to penicillin
CPT/HCPCS: 36415; 71045; 71046; 71250; 74175; 74176; 76770; 80048; 80053; 80074; 80307; 81001; 82550; 82570; 83690; 83735; 84100; 84145; 84156; 84300; 84484; 84540; 85025; 85380; 85610; 85730; 86703; 93005; 93306; 93970; 93976; 96361; 96365; 96366; 96367; 96375; 96376; 99285; A9270; C9803; G0378; G0432; J0131; J0360; J1644; J2250; J2270; J2405; J7030; J7120; Q9967; U0003; U0005